=== PATIENT | female | born 1975 | race Caucasian/White ===

== ENCOUNTER 2019-03-27 20:35 | Emergency (ER) | payer SELFPAY ==
[~2019-03-27] VITALS: Ht 175.3 cm; Wt 102.1 kg
--- NOTE | 2019-03-27 20:59 | ED Upper Extremity ---
General Chief Complaint: Upper Extremity Stated Complaint: CHEST PAIN DUE TO INJ History of Present Illness Date Seen by Provider: March 27, 2019 Time Seen by Provider: 20:54 Initial Comments 43-year-old female who states that she is having right shoulder and anterior chest pain due to her 3-year-old son becoming scared during a storm" climbing up my chest" 3 days ago. No shortness of breath. The pain has progressively increased. Her pain worsens with palpation and movement. No history of coronary disease. She has been treated for hypertension. No fever or chills Allergies and Home Medications Patient Home Medication List Home Medication List Reviewed: Yes Review of Systems Constitutional: no symptoms reported, see HPI EENTM: no symptoms reported Respiratory: no symptoms reported; No short of breath, No stridor, No wheezing Cardiovascular: chest pain (chest wall on right side.) Gastrointestinal: no symptoms reported Genitourinary: no symptoms reported Musculoskeletal: see HPI Skin: no symptoms reported Psychiatric/Neurological: No Symptoms Reported Past Mccynrn-Floweq-Iolmgl Hx Past Med/Social Hx: Reviewed Nursing Past Med/Soc Hx Patient Social History Alcohol Use: Denies Use Recreational Drug Use: No Smoking Status: Current Everyday Smoker Type Used: Cigarettes 2nd Hand Smoke Exposure: No Recent Foreign Travel: No Contact w/Someone Who Travel: No Recent Hopitalizations: No Physical Abuse: No Sexual Abuse: No Mistreated: No Fear: No Seasonal Allergies Seasonal Allergies: No Past Medical History Appendectomy, Bowel Surgery, Section Respiratory: No Cardiac: No Neurological: No Genitourinary: No Gastrointestinal: No Musculoskeletal: No Endocrine: No HEENT: No Cancer: No Psychosocial: No Integumentary: No Blood Disorders: No Physical Exam Vital Signs Vital Signs - First Documented 03/27/19 20:49 Temp 96.7 Pulse 83 Resp 24 B/P (MAP) 206/113 (144) Pulse Ox 98 O2 Delivery Room Air Capillary Refill : Height, Weight, BMI Height: '" Weight: lbs. oz. kg; BMI Method: General Appearance: WD/WN, no apparent distress HEENT: PERRL/EOMI, normal ENT inspection, TMs normal, pharynx normal Neck: non-tender, full range of motion, supple, normal inspection Cardiovascular: normal peripheral pulses, regular rate, rhythm, no edema, no gallop, no JVD, no murmur Respiratory: lungs clear, normal breath sounds, no respiratory distress, no accessory muscle use, other (chest wall tender over clavicular area on right, reproduces pain.) Gastrointestinal: normal bowel sounds, non tender, soft, no organomegaly, no pulsatile mass Back: normal inspection, no CVA tenderness, no vertebral tenderness Shoulder: normal inspection, pain Elbow/Forearm: normal inspection, non-tender, no evidence of injury, normal ROM Wrist: Yes normal inspection, Yes non-tender, Yes no evidence of injury, Yes normal ROM Hand: normal inspection, non-tender, no evidence of injury, normal ROM Reflexes: 2+ bicep (R), 2+ bicep (L) Neurologic/Tendon: normal sensation, normal motor functions, normal tendon functions Neurologic/Psychiatric: no motor/sensory deficits, alert, normal mood/affect, oriented x 3 Skin: normal color, warm/dry Lymphatic: no adenopathy Progress/Results/Core Measures Results/Orders Lab Results Laboratory Tests Test 03/27/19 21:20 Range/Units White Blood Count 10.4 4.3-11.0 10^3/uL Red Blood Count 4.13 L 4.35-5.85 10^6/uL Hemoglobin 12.7 11.5-16.0 G/DL Hematocrit 38 35-52 % Mean Corpuscular Volume 91 80-99 FL Mean Corpuscular Hemoglobin 31 25-34 PG Mean Corpuscular Hemoglobin Concent 34 32-36 G/DL Red Cell Distribution Width 13.1 10.0-14.5 % Platelet Count 307 130-400 10^3/uL Mean Platelet Volume 10.3 7.4-10.4 FL Neutrophils (%) (Auto) 61 42-75 % Lymphocytes (%) (Auto) 30 12-44 % Monocytes (%) (Auto) 6 0-12 % Eosinophils (%) (Auto) 2 0-10 % Basophils (%) (Auto) 1 0-10 % Neutrophils # (Auto) 6.4 1.8-7.8 X 10^3 Lymphocytes # (Auto) 3.2 1.0-4.0 X 10^3 Monocytes # (Auto) 0.6 0.0-1.0 X 10^3 Eosinophils # (Auto) 0.2 0.0-0.3 10^3/uL Basophils # (Auto) 0.1 0.0-0.1 10^3/uL Sodium Level 139 135-145 MMOL/L Potassium Level 3.7 3.6-5.0 MMOL/L Chloride Level 103 98-107 MMOL/L Carbon Dioxide Level 25 21-32 MMOL/L Anion Gap 11 5-14 MMOL/L Blood Urea Nitrogen 8 7-18 MG/DL Creatinine 0.67 0.60-1.30 MG/DL Estimat Glomerular Filtration Rate > 60 BUN/Creatinine Ratio 12 Glucose Level 144 H 70-105 MG/DL Calcium Level 8.5 8.5-10.1 MG/DL Corrected Calcium 8.8 8.5-10.1 MG/DL Total Bilirubin 0.2 0.1-1.0 MG/DL Aspartate Amino Transf (AST/SGOT) 14 5-34 U/L Alanine Aminotransferase (ALT/SGPT) 15 0-55 U/L Alkaline Phosphatase 53 40-136 U/L Troponin T < 6 <=10 NG/L Total Protein 7.2 6.4-8.2 GM/DL Albumin 3.6 3.2-4.5 GM/DL My Orders Orders - KYLE MEDINA MD Chest Pa/Lat (2 View) (03/27/19 20:56) Shoulder 3 View Right (03/27/19 20:56) Ekg Tracing (03/27/19 20:56) Cbc With Automated Diff (03/27/19 21:06) Comprehensive Metabolic Panel (03/27/19 21:06) Troponin T (03/27/19 21:06) Vital Signs/I&O 03/27/19 20:49 Temp 96.7 Pulse 83 Resp 24 B/P (MAP) 206/113 (144) Pulse Ox 98 O2 Delivery Room Air Progress Progress Note : Time: 21:09 Progress Note Although her symptoms are more mechanical in nature, findings on the EKG indicate a need to obtain cardiac enzymes as well as chemistry testing. X-rays of shoulder and chest are ordered. 2217 I explained the EKG changes appear to be chronic but need to be followed up by her primary care. We discussed costochondritis and treatment. Initial ECG Impression Date: March 27, 2019 Initial ECG Impression Time: 21:06 Initial ECG Rhythm: Normal Sinus Initial ECG Intervals: QT (prolonged 454) Initial ECG Comparisson: No Previous ECG Available Comment prolonged QT of unknown significance. Diagnostic Imaging Diagonstic Imaging: Xray (chest and right shoulder) Comments No acute changes per radiology. Departure Impression Primary Impression: Costochondral chest pain Additional Impression: Abnormal finding on EKG Disposition: HOME, SELF-CARE Condition: Stable Departure-Patient Inst. Referrals: KYLE LIZAMA MD (PCP) Primary Care Physician 2-3 days, sooner as needed Patient Instructions: Chest Pain (DC), Chest Pain That Is Not Caused by the Heart (DC) Scripts Naproxen (Naprosyn) 500 Mg Tablet 500 MG PO BID, #30 TAB 0 Refills Prov: KYLE MEDINA MD 03/27/19 KYLE MEDINA MD March 27, 2019 20:59
--- NOTE | 2019-03-27 21:24 | Diagnostic Imaging Report ---
INDICATION: Chest pain and injury. TIME OF EXAM: 8:51 p.m. EXAMINATION: Two views of the chest were obtained. COMPARISON: No prior studies are available for comparison. FINDINGS: The heart size is normal. The pulmonary vascularity is unremarkable. The lungs are clear. No infiltrate, effusion or pneumothorax is detected. IMPRESSION: No acute cardiopulmonary process is detected. Dictated by: Dictated on workstation # [id number]
--- NOTE | 2019-03-27 21:26 | Diagnostic Imaging Report ---
INDICATION: Right shoulder injury and pain. TIME OF EXAM: 8:53 p.m. EXAMINATION: Three views of the right shoulder were obtained. FINDINGS: Normal glenohumeral and acromioclavicular alignment. Acromiohumeral space is normal. No fracture or dislocation is seen. IMPRESSION: No acute bony abnormality is detected. Dictated by: Dictated on workstation # [id number]
[2019-03-27 21:33] LABS: HEMATOCRIT 38 % (35-52); HEMOGLOBIN 12.7 G/DL (11.5-16.0); MEAN CORPUSCULAR HEMOGLOBIN 31 PG (25-34); MEAN CORPUSCULAR VOLUME 91 FL (80-99); WHITE BLOOD COUNT 10.4 10^3/uL (4.3-11.0)
[2019-03-27 21:34] LABS: BASOPHILS # (AUTO) 0.1 10^3/uL (0.0-0.1); BASOPHILS % (AUTO) 1 % (0-10); EOSINOPHILS # (AUTO) 0.2 10^3/uL (0.0-0.3); EOSINOPHILS % (AUTO) 2 % (0-10); LYMPHOCYTES # (AUTO) 3.2 X 10^3 (1.0-4.0); LYMPHOCYTES % (AUTO) 30 % (12-44); MEAN CORPUSCULAR HGB CONC 34 G/DL (32-36); MEAN PLATELET VOLUME 10.3 FL (7.4-10.4); MONOCYTES # (AUTO) 0.6 X 10^3 (0.0-1.0); MONOCYTES % (AUTO) 6 % (0-12); NEUTROPHILS # (AUTO) 6.4 X 10^3 (1.8-7.8); NEUTROPHILS % (AUTO) 61 % (42-75); PLATELET COUNT 307 10^3/uL (130-400); RED CELL DISTRIBUTION WIDTH 13.1 % (10.0-14.5)
[2019-03-27 21:58] LABS: CHLORIDE 103 MMOL/L (98-107); POTASSIUM 3.7 MMOL/L (3.6-5.0); SODIUM 139 MMOL/L (135-145)
[2019-03-27 21:59] LABS: ALANINE AMINOTRANSFERASE 15 U/L (0-55); ALKALINE PHOSPHATASE 53 U/L (40-136); BILIRUBIN,TOTAL 0.2 MG/DL (0.1-1.0); BUN/CREATININE RATIO 12; CALCIUM 8.5 MG/DL (8.5-10.1); CARBON DIOXIDE 25 MMOL/L (21-32); CREATININE SERUM 0.67 MG/DL (0.60-1.30); GFR ESTIMATED > 60; GLUCOSE 144 MG/DL (70-105); TOTAL PROTEIN 7.2 GM/DL (6.4-8.2)
[2019-03-27 22:00] LABS: ALBUMIN 3.6 GM/DL (3.2-4.5)
[2019-03-27] MEDS ORDERED: NAPR-1071 PO (22:20)
[2019-03-27] MEDS ORDERED: NAPROXEN 250 MG (NAPROSYN) TABLET PO ONE (22:30)
[2019-03-27] MEDS ORDERED: IBUPROFEN 600 MG (MOTRIN) TAB PO ONE (22:30)
[2019-03-27 22:33] VITALS: BP 191/85
== END 2019-03-27 22:33 | disposition home or self-care (01) ==
LOC: ER FS 20:37
DX: R07.1 Chest pain on breathing (principal); R94.31 Abnormal electrocardiogram [ECG] [EKG]; F17.210 Nicotine dependence, cigarettes, uncomplicated; Z90.49 Acquired absence of other specified parts of digestive tract; Z98.890 Other specified postprocedural states; X58.XXXA Exposure to other specified factors, initial encounter
CPT/HCPCS: 36415; 71046; 73030; 80053; 84484; 85025; 93005

== ENCOUNTER → 2020-06-25 | Outpatient (CLI) | payer OTHER ==
[~2020-06-25] MED LIST: ASPI-983 PO; DULO60CA6 PO; HYDR25TA4 PO; LISI10TA2 PO; LORA10TA7 PO; METO50TA15 PO; NAPR-1071 PO; TEMA7.5C PO
== END ==
LOC: LABNPT 07:22
PROVIDERS: ATTEND Internal Medicine Cardiovascular Disease
DX: Z01.812 Encounter for preprocedural laboratory examination (principal); R05 Cough; R06.02 Shortness of breath; Z53.9 Procedure and treatment not carried out, unspecified reason

== ENCOUNTER 2020-06-30 09:03 | Day surgery (SDC) | payer OTHER ==
[2020-06-30] VITALS (8 sets, daily range): BP systolic 123–149; BP diastolic 69–92
[~2020-06-30] VITALS: Ht 173 cm; Wt 114.0 kg
[~2020-06-30 09:03] MED LIST changes: -ASPI-983 PO; -DULO60CA6 PO; -HYDR25TA4 PO; -LISI10TA2 PO; -LORA10TA7 PO; -METO50TA15 PO; -TEMA7.5C PO
[2020-06-30] MEDS ORDERED: LIDOCAINE 1% INJ 20 ML 20 ML VIAL ONE (09:05)
[2020-06-30] MEDS ORDERED: NS IV 1000 ML 1,000 ML ONE (09:05)
[2020-06-30] MEDS ORDERED: HEParin (CATH LAB) 2,000 ML IV ONE (09:05)
--- OUTSIDE RECORDS SUMMARY | 2020-06-30 09:11 | XMS REPORT | Continuity of Care Document ---
Author Organization Unknown Address Unknown Phone Unavailable Allergies Active Description Code Type Severity Reaction Onset Reported/Identified Relationship to Patient Clinical Status Yes fluticasone [id number] Drug Aller gy Unknown N/A 03/27/2019 Yes Penicillins [id number] Drug Aller gy Unknown N/A 03/27/2019 Medications There is no data. Problems Date Dx Coded Attending Type Code Diagnosis Diagnosed By 03/27/2019 KYLE MEDINA MD, Ot F17.210 NICOTINE DEPENDENCE, CIGARETTES, UNCOMPL 03/27/2019 KYLE MEDINA MD, Ot R07.1 CHEST PAIN ON BREATHING 03/27/2019 KYLE MEDINA MD, Ot R07.9 CHEST PAIN, UNSPECIFIED 03/27/2019 KYLE MEDINA MD, Ot R94.31 ABNORMAL ELECTROCARDIOGRAM [ECG] [EKG] 03/27/2019 KYLE MEDINA MD, Ot X58.XXX A EXPOSURE TO OTHER SPECIFIED FACTORS, INI 03/27/2019 KYLE MEDINA MD Ot Z90.49 ACQUIRED ABSENCE OF OTHER SPECIFIED PART 03/27/2019 KYLE MEDINA MD Ot Z98.890 OTHER SPECIFIED POSTPROCEDURAL STATES 06/25/2020 BROOKE GARDNER MD, Ot I10 ESSENTIAL (PRIMARY) HYPERTENSION 06/25/2020 BROOKE GARDNER MD, Ot R00. 0 TACHYCARDIA, UNSPECIFIED 06/25/2020 BROOKE GARDNER MD, Ot R07. 9 CHEST PAIN, UNSPECIFIED 06/25/2020 BROKOE GARDNER MD, Ot Z72. 0 TOBACCO USE Procedures There is no data. Results Test Result Range Complete blood count (CBC) with automate d white blood cell (WBC) differential - 03/27/19 21:20 Blood leukocytes automated count (number/volume) 10.4 10*3/uL 4.3-11.0 Blood erythrocytes automated count (number/volume) 4.13 10*6/uL 4.35-5.85 Venous blood hemoglobin measurement (mass/volume) 12.7 g/dL 11.5-16.0 Blood hematocrit (volume fraction) 38 % 35-52 Automated erythrocyte mean corpuscular volume 91 [ foz_us] 80-99 Automated erythrocyte mean corpuscular h emoglobin (mass per erythrocyte) 31 pg 25-34 Automated erythrocyte mean corpuscular h emoglobin concentration measurement (mass/volume) 34 g/dL 32-36 Automated erythrocyte distribution width ratio 13. 1 % 10.0- 14.5 Automated blood platelet count (count/volume) 307 10*3/uL 130-400 Automated blood platelet mean volume measurement 10.3 [foz_us] 7.4-10.4 Automated blood neutrophils/100 leukocytes 61 % 42-75 Automated blood lymphocytes/100 leukocytes 30 % 12-44 Blood monocytes/100 leukocytes 6 % 0-12 Automated blood eosinophils/100 leukocytes 2 % 0-10 Automated blood basophils/100 leukocytes 1 % 0-10 Blood neutrophils automated count (number/volume) 6.4 10*3 1.8-7.8 Blood lymphocytes automated count (number/volume) 3.2 10*3 1.0-4.0 Blood monocytes automated count (number/volume) 0. 6 10*3 0.0-1.0 Automated eosinophil count 0.2 10*3/uL 0 .0-0.3 Automated blood basophil count (count/volume) 0.1 10*3/uL 0.0-0.1 Comprehensive metabolic panel - 03/27/19 21:20 Serum or plasma sodium measurement (moles/volume) 139 mmol/L 135-145 Serum or plasma potassium measurement (moles/volume) 3.7 mmol/L 3.6-5.0 Serum or plasma chloride measurement (moles/volume) 103 mmol/L 98-107 Carbon dioxide 25 mmol/L 21-32 Serum or plasma anion gap determination (moles/volume) 11 mmol/L 5-14 Serum or plasma urea nitrogen measurement (mass/volume ) 8 mg/dL 7-18 Serum or plasma creatinine measurement (mass/volume) 0.67 mg/dL 0.60-1.30 Serum or plasma urea nitrogen/creatinine mass ratio 12 NRG Serum or plasma creatinine measurement w ith calculation of estimated glomerular filtration rate > NRG Serum or plasma glucose measurement (mass/volume) 144 mg/dL 70-105 Serum or plasma calcium measurement (mass/volume) 8.5 mg/dL 8.5-10.1 Serum or plasma total bilirubin measurement (mass/volu me) 0.2 mg/dL 0.1-1.0 Serum or plasma alkaline phosphatase lucas surement (enzymatic activity/volume) 53 U/L 40-136 Serum or plasma aspartate aminotransfera se measurement (enzymatic activity/volume) 14 U/L 5-34 Serum or plasma alanine aminotransferase measurement (enzymatic activity/volume) 15 U/L 0-55 Serum or plasma protein measurement (mass/volume) 7.2 g/dL 6.4-8.2 Serum or plasma albumin measurement (mass/volume) 3.6 g/dL 3.2-4.5 CALCIUM CORRECTED 8.8 mg/dL 8.5-10.1 TROPONIN T - 03/27/19 21:20 TROPONIN T < 6 <=10 CMP - 07/16/19 08:02 GLUCOSE 98 mg/dL 65-99 UREA NITROGEN (BUN) 8 mg/dL 7-25 CREATININE 0.74 mg/dL 0.50-1.10 eGFR NON-AFR. FAROESE 101 mL/min/1.73m2 > OR = 60 eGFR 117 mL/min/1.73m2 > OR = 60 BUN/CREATININE RATIO NOT APPLICABLE (calc) 6-22 SODIUM 136 mmol/L 135-146 POTASSIUM 4.1 mmol/L 3.5-5.3 CHLORIDE 104 mmol/L 98-110 CARBON DIOXIDE 24 mmol/L 20-32 CALCIUM 8.6 mg/dL 8.6-10.2 PROTEIN, TOTAL 6.7 g/dL 6.1-8.1 ALBUMIN 3.9 g/dL 3.6-5.1 GLOBULIN 2.8 g/dL (calc) 1.9-3.7 ALBUMIN/GLOBULIN RATIO 1.4 (calc) 1.0-2. 5 BILIRUBIN, TOTAL 0.3 mg/dL 0.2-1.2 ALKALINE PHOSPHATASE 46 U/L 33-115 AST 15 U/L 10-30 ALT 14 U/L 6-29 CBC w/MANUAL DIFF - 07/16/19 08:02 WHITE BLOOD CELL COUNT 7.8 Thousand/uL 3 .8-10.8 RED BLOOD CELL COUNT 4.34 Million/uL 3.8 0-5.10 HEMOGLOBIN 12.9 g/dL 11.7-15.5 HEMATOCRIT 39.8 % 35.0-45.0 MCV 91.7 fL 80.0-100.0 MCH 29.7 pg 27.0-33.0 MCHC 32.4 g/dL 32.0-36.0 RDW 13.8 % 11.0-15.0 PLATELET COUNT 285 Thousand/uL 140-400 MPV 10.4 fL 7.5-12.5 ABSOLUTE NEUTROPHILS 4368 cells/uL 1500- 7800 ABSOLUTE MONOCYTES 741 cells/uL 200-950 ABSOLUTE EOSINOPHILS 273 cells/uL 15-500 ABSOLUTE BASOPHILS 133 cells/uL 0-200 NEUTROPHILS 56.0 % NRG LYMPHOCYTES 29.3 % NRG MONOCYTES 9.5 % NRG EOSINOPHILS 3.5 % NRG BASOPHILS 1.7 % NRG ABSOLUTE LYMPHOCYTES 2285 cells/uL 850-3 900 PLATELET ESTIMATION ADEQUATE ADEQUATE COMMENT(S) NRG A1C - 07/16/19 08:02 HEMOGLOBIN A1c 5.3 % of total Hgb <5.7 BNP - 07/16/19 08:02 B TYPE NATRIURETIC PEPTIDE (BNP) 22 pg/mL <100 LIPID PANEL - 06/09/20 08:09 CHOLESTEROL, TOTAL 142 mg/dL <200 HDL CHOLESTEROL 29 mg/dL > OR = 50 TRIGLYCERIDES 229 mg/dL <150 LDL-CHOLESTEROL 81 mg/dL (calc) NRG CHOL/HDLC RATIO 4.9 (calc) <5.0 NON HDL CHOLESTEROL 113 mg/dL (calc) <13 0 CMP - 06/09/20 08:09 GLUCOSE 98 mg/dL 65-99 UREA NITROGEN (BUN) 9 mg/dL 7-25 CREATININE 0.73 mg/dL 0.50-1.10 eGFR NON-AFR. FAROESE 102 mL/min/1.73m2 > OR = 60 eGFR 118 mL/min/1.73m2 > OR = 60 BUN/CREATININE RATIO NOT APPLICABLE (calc) 6-22 SODIUM 135 mmol/L 135-146 POTASSIUM 3.8 mmol/L 3.5-5.3 CHLORIDE 99 mmol/L 98-110 CARBON DIOXIDE 26 mmol/L 20-32 CALCIUM 8.2 mg/dL 8.6-10.2 PROTEIN, TOTAL 6.6 g/dL 6.1-8.1 ALBUMIN 3.8 g/dL 3.6-5.1 GLOBULIN 2.8 g/dL (calc) 1.9-3.7 ALBUMIN/GLOBULIN RATIO 1.4 (calc) 1.0-2. 5 BILIRUBIN, TOTAL 0.3 mg/dL 0.2-1.2 ALKALINE PHOSPHATASE 43 U/L 31-125 AST 13 U/L 10-30 ALT 11 U/L 6-29 TSH - 06/09/20 08:09 TSH 2.01 mIU/L NRG A1C - 06/09/20 08:09 HEMOGLOBIN A1c 5.4 % of total Hgb <5.7 Encounters ACCT No. Visit Date/Time Discharge Status Pt. Type Provider Facility Loc./Unit Complaint [id number] 06/25/2020 11:00:00 06/25/2020 23:59: 59 CLS Outpatient SAMANTHA BURAK [facility] [id number] 06/09/2020 08:00:00 Document Registration [id number] 07/16/2019 08:00:00 Document Registration [id number] 06/25/2020 07:22:00 020 23:59:59 CLS Outpatient BROOKE GARDNER MD [facility] LABNPT [id number] 06/23/2020 07:39:00 23:59:59 CLS Outpatient BROOKE GARDNER MD [facility] CARD DYSPNEA ON EXERTION,PATTIE ST PAIN,HYPERTENSION [id number] 03/27/2019 20:37:00 22:33:00 DIS Emergency CAROL LAY, KYLE hodges [facility] ER FS CHEST PAIN DUE TO INJ [id number] 06/30/2020 09:03:[address] Outpatient BROOKE GARDNER MD [facility] CATH ABN STRESS
[2020-06-30] MEDS ORDERED: NS IV 1000 ML 1,000 ML IV SCH ×3 (09:15→12:59)
[2020-06-30] MEDS ORDERED: methylPREDNISolone 125 MG (Solu-MEDROL) VIAL ONE (10:24)
[2020-06-30] MEDS ORDERED: diphenhydrAMINE 50 MG/ML INJ (BENADRYL) ONE (10:24)
[2020-06-30 10:25] LABS: HEMOGLOBIN 14.3 G/DL (11.5-16.0); MEAN PLATELET VOLUME 9.9 FL (7.4-10.4); RED CELL DISTRIBUTION WIDTH 12.6 % (10.0-14.5); WHITE BLOOD COUNT 8.9 10^3/uL (4.3-11.0)
--- NOTE | 2020-06-30 10:28 | Diagnostic Imaging Report ---
INDICATION: Coronary artery disease. COMPARISON: 03/27/2019. FINDINGS: No focal consolidation. No failure, effusion, or pneumothorax. No free air beneath the diaphragms. IMPRESSION: No acute appearing abnormality. Dictated by: Dictated on workstation # [id number]
[2020-06-30 10:36] LABS: INR 0.9 (0.8-1.4)
[2020-06-30] MEDS ORDERED: TEMA7.5C PO (10:41)
[2020-06-30] MEDS ORDERED: DULO60CA6 PO (10:41)
[2020-06-30] MEDS ORDERED: LISI10TA2 PO (10:41)
[2020-06-30] MEDS ORDERED: LORA10TA7 PO (10:41)
[2020-06-30] MEDS ORDERED: HYDR25TA4 PO (10:41)
[2020-06-30] MEDS ORDERED: METO50TA15 PO (10:41)
[2020-06-30] MEDS ORDERED: ASPI-983 PO (10:41)
--- NOTE | 2020-06-30 10:42 | NUR ---
SPOKE WITH THE PT AND LOOKED THRU HER MED BOTTLES TO COMPLETE THE MED REC 05-10-2020 LISINOPRIL 10MG #90/90DS 06-04-2020 DULOXETINE 60MG #30/30DS 06-04-2020 TEMAZEPAM 7.5MG #28/28DS 06-04-2020 HCTZ 25MG #30/30DS 06-15-2020 METOPROLOL TART 50MG #60/30DS OTC MEDS: ASPIRIN 81 LORATADINE 10MG
[2020-06-30 10:45] LABS: ALANINE AMINOTRANSFERASE 16 U/L (0-55); ALBUMIN 3.8 GM/DL (3.2-4.5); ALKALINE PHOSPHATASE 42 U/L (40-136); BILIRUBIN,TOTAL 0.3 MG/DL (0.1-1.0); BUN/CREATININE RATIO 12; CALCIUM 8.1 MG/DL (8.5-10.1); CARBON DIOXIDE 24 MMOL/L (21-32); CHLORIDE 102 MMOL/L (98-107); CHOLESTEROL 154 MG/DL (< 200); CREATININE SERUM 0.68 MG/DL (0.60-1.30); GFR ESTIMATED > 60; GLUCOSE 105 MG/DL (70-105); HDL CHOLESTEROL 26 MG/DL (40-60); SODIUM 138 MMOL/L (135-145); TOTAL PROTEIN 7.3 GM/DL (6.4-8.2); TRIGLYCERIDES 112 MG/DL (<150); VLDL CHOLESTEROL 22 MG/DL (5-40)
[2020-06-30] MEDS ORDERED: methylPREDNISolone 125 MG (Solu-MEDROL) VIAL IVP ONE (10:45)
--- NOTE | 2020-06-30 12:02 | Cardiac Procedure Note-CS/ASA ---
Pre-Procedure Note Pre-Op Procedure Note H&P Reviewed The H&P was reviewed, patient examined and no changes noted. Date H&P Reviewed: Jun 30, 2020 Time H&P Reviewed: 12:02 Conscious Sedation Pre-Proced Time 12:02 ASA Score 3 For ASA 3 and 4: Consider anesthesia and medical clearance. Also, for patients with a history of failed moderate sedation consider anesthesia. Airway Lungs Heart ASA score ASA 1: a normal healthy patient ASA 2: a patient with a mild systemic disease (mid diabetes, controlled hypertension, obesity x ASA 3: a patient with a severe systemic disease that limits activity (angina, COPD, prior Myocardial infarction) ASA 4: a patient with an incapacitating disease that is a constant threat to life (CHF, renal failure) ASA 5: a moribund patient not expected to survive 24 hrs. (ruptured aneurysm) ASA 6: a declared brain- patient whose organs are being harvested. For emergent operations, add the letter E after the classification Mallampati Classification Grade 3 Sedation Plan Analgesia, Amnesia, Plan communicated to team members, Discussed options with patient/fam, Discussed risks with patient/fam The patient is an appropriate candidate to undergo the planned procedure, sedation, and anesthesia. The patient immediately re-assessed prior to indication. BROOKE GARDNER MD Jun 30, 2020 12:02
[2020-06-30] MEDS ORDERED: MIDAZOLAM 5 MG/5 ML (VERSED) VIAL ONE (12:23)
[2020-06-30] MEDS ORDERED: NITRO DRIP 25000 MCG/D5W 250 ML IV ONE (12:24)
[2020-06-30] MEDS ORDERED: HEParin 1000 UNIT/ML (10ML VIAL) FOR BOLUS ONE (12:24)
[2020-06-30] MEDS ORDERED: VERAPAMIL 5 MG/2 ML (CALAN) VIAL IV ONE (12:24)
[2020-06-30] MEDS ORDERED: fentaNYL INJECTION 100 MCG/2 ML AMP ONE (12:24)
[2020-06-30] MEDS ORDERED: PATIENT MAY USE OWN MEDS, ALL PO SCH (13:00)
--- NOTE | 2020-06-30 13:01 | Discharge Inst-Post CATH ---
Discharge Inst-CATH/EP Problems Reviewed?: Yes Post Cardiac Cath/EP D/C Inst Follow Up/Plan Appointment with Dr. Jones's office in 2-4 weeks <b>CARDIAC CATH/EP PROCEDURE DISCHARGE INSTRUCTIONS</b> ACTIVITY * Go Home directly and rest. * Limit activity of the leg (or wrist if it was used) for 7 days including aerobics, swimming, jogging, bicycling, etc. * Restrict stair-climbing for 7 days if possible, if not, climb up with your non-cath leg, then bring together on the same step. * Avoid lifting, pushing, pulling or excessive movement of the affected extremity for 7 days. * Customary sexual activity may be resumed after 2 days-use caution not to use a position that strains or causes pain to the affected extremity. * No driving for 24 hours. * NO SMOKING. * Avoid straining for bowel movements for 7 days. * Gentle walking on level ground is allowed. * Returning to work will depend on the type of procedure and the results. Your doctor will discuss this with you. CALL YOUR DOCTOR FOR ANY OF THE FOLLOWING: *If bleeding from the puncture site occurs- Apply gentle pressure to site with clean cloth and call your doctor or EMS. * If a knot or lump forms under the skin, increases in size, or causes pain. * If bruising appears to be worsening or moving further down your leg instead of disappearing. * Temperature above 101 F. CARE OF YOUR GROIN INCISION; * Bruising or purple discoloration of the skin near the puncture site is common. * You may shower only, no bathtub bathing for 5 days. Be careful to avoid slipping as your leg may feel stiff. * If a closure device was used on your femoral artery, please see the attached guide regarding care of the device and your leg. * Leave dressing on FOR 24 hours. CARE OF YOUR WRIST INCISION; * Bruising or purple discoloration of the skin near the puncture site is common. * You may shower. * DO NOT submerge wrist. * Leave dressing on FOR 24 hours. BROOKE JONES MD Jun 30, 2020 13:01
--- NOTE | 2020-06-30 13:05 | Cardiac Cath Report ---
Cardiac Cath Report Physician (s)/Community Resource Consultant (s) Physician BROOKE GARDNER MD Pre-Procedure Diagnosis Pre-Procedure Diagnosis: Coronary artery disease Post-Procedure Note Procedure Start Date: Jun 30, 2020 Name of Procedure: Left heart catheterization Left ventriculogram Aortic arch angiogram Findings/Procedure Note PROCEDURE NOTE: 44-year-old lady with history of hypertension, hyperlipidemia, has been having recurrent chest pain, had an abnormal stress test. Scheduled for cardiac catheterization possible PTCA. After explaining the procedure to the patient, all pros and cons were explained, all questions were answered. The patient signed the consent and then she was placed on the cardiac catheterization laboratory. Groin was prepped SL fashion local anesthesia was used. Sheath placed in the right radial artery, tiger catheter was used advanced to the left ventricular cavity, left ventriculogram was done, pullback LV to aorta was done, pressure was measured, intubated the right and left coronary system and selective angiogram was done then it was pulled to the aortic arch and aortic arch angiogram was done. At the end of the procedure the sheath was removed. 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 Mild coronary artery disease otherwise no significant obstructive disease 3. Normal left ventricular size and systolic function EF 60 percent 4. 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
--- NOTE | 2020-06-30 13:52 | NUR ---
THIS RN PHONED DR. GARDNER TO VERIFY BEDREST. INFORMED THAT PATIENT COULD LEAVE AT 1500.
== END 2020-06-30 15:15 ==
LOC: CATH 09:03 → SDC 13:21 → CATH 15:15
PROVIDERS: ATTEND Internal Medicine Cardiovascular Disease
DX: I25.10 Atherosclerotic heart disease of native coronary artery without angina pectoris (principal); I10 Essential (primary) hypertension; R94.39 Abnormal result of other cardiovascular function study; E78.2 Mixed hyperlipidemia; F41.9 Anxiety disorder, unspecified; E66.9 Obesity, unspecified; Z68.38 Body mass index [BMI] 38.0-38.9, adult; F17.210 Nicotine dependence, cigarettes, uncomplicated; Z79.899 Other long term (current) drug therapy; Z79.82 Long term (current) use of aspirin; Z88.0 Allergy status to penicillin; Z91.041 Radiographic dye allergy status; Z91.013 Allergy to seafood; Z88.8 Allergy status to other drugs, medicaments and biological substances; Z88.1 Allergy status to other antibiotic agents; Z80.3 Family history of malignant neoplasm of breast; Z83.3 Family history of diabetes mellitus
CPT/HCPCS: 71045; 80053; 80061; 84703; 85027; 85610; 85730; 87081; 93458; C1894; 36415

== ENCOUNTER 2020-10-07 07:22 | Outpatient (RCR) | payer OTHER ==
[~2020-10-07] VITALS: Ht 175.3 cm; Wt 118.2 kg
[~2020-10-07 07:22] MED LIST changes: +ASPI-1238 PO; +DULO60CA6 PO; +HYDR25TA4 PO; +LISI10TA2 PO; +LORA10TA7 PO; +METO50TA15 PO; +TEMA7.5C PO
== END 2020-10-07 11:55 | disposition home or self-care (01) ==
LOC: PREOP 07:22
PROVIDERS: ATTEND Obstetrics & Gynecology
DX: Z01.818 Encounter for other preprocedural examination (principal)

== ENCOUNTER → 2020-10-08 | Outpatient (CLI) | payer OTHER | LOC: LAB FS 10:19 | PROVIDERS: ATTEND Obstetrics & Gynecology | DX: Z01.812 Encounter for preprocedural laboratory examination (principal); N93.9 Abnormal uterine and vaginal bleeding, unspecified; Z68.38 Body mass index [BMI] 38.0-38.9, adult; Z20.828 Contact with and (suspected) exposure to other viral communicable diseases | CPT/HCPCS: 87635 ==

== ENCOUNTER 2020-10-11 08:57 | Day surgery (SDC) | payer OTHER ==
[2020-10-11] VITALS (10 sets, daily range): BP systolic 114–140; BP diastolic 73–83
[~2020-10-11] VITALS: Ht 175 cm; Wt 118.0 kg
[2020-10-11 09:35] LABS: BASOPHILS % (AUTO) 0 % (0-10); EOSINOPHILS # (AUTO) 0.1 10^3/uL (0.0-0.3); EOSINOPHILS % (AUTO) 1 % (0-10); HEMATOCRIT 42 % (35-52); LYMPHOCYTES # (AUTO) 2.9 10^3/uL (1.0-4.0); LYMPHOCYTES % (AUTO) 26 % (12-44); MEAN CORPUSCULAR HEMOGLOBIN 31 pg (25-34); MEAN CORPUSCULAR HGB CONC 33 g/dL (32-36); MEAN CORPUSCULAR VOLUME 95 fL (80-99); MEAN PLATELET VOLUME 10.5 fL (9.0-12.2); MONOCYTES # (AUTO) 0.8 10^3/uL (0.0-1.0); MONOCYTES % (AUTO) 7 % (0-12); NEUTROPHILS # (AUTO) 7.3 10^3/uL (1.8-7.8); NEUTROPHILS % (AUTO) 65 % (42-75); PLATELET COUNT 302 10^3/uL (130-400); WHITE BLOOD COUNT 11.2 10^3/uL (4.3-11.0)
[2020-10-11] MEDS: LACTATED RINGERS 1,000 ML IV PRN ×2 (09:55→11:42)
[2020-10-11] MEDS ORDERED: D5 LR IV SOLUTION 1,000 ML IV SCH (10:20)
--- NOTE | 2020-10-11 10:20 | Progress Note-Pre Operative ---
Pre-Operative Progress Note H&P Reviewed The H&P was reviewed, patient examined and no changes noted. Date Seen by Provider: Oct 11, 2020 Time Seen by Provider: 10:19 Date H&P Reviewed: Oct 11, 2020 Time H&P Reviewed: 10:15 Pre-Operative Diagnosis: AUB, BMI 38 ARTI COSTA DO Oct 11, 2020 10:20
--- NOTE | 2020-10-11 10:22 | Discharge Inst-Women's Service ---
Discharge Inst-Women's Serv Depart Medication/Instructions New, Converted or Re-Newed RX: RX on Chart Problems Reviewed?: Yes Consults/Follow Up Additional Follow Up: Yes Orders/Referrals Dr. Costa in 2 weeks Activity Activity: Activity as Tolerated Driving Instructions: No Driving for 1 Week NO SMOKING: NO SMOKING Nothing Inside Vagina: No Douching, No Mcleod, No Tampons Diet Discharge Diet: No Restrictions Symptoms to Report to : Bleeding Excessive, Pain Increased, Fever Over 101 Degrees F, Vaginal Bleeding Increase, Questions/Concerns For Any Problems or Questions: Contact Your Physician ARTI COSTA DO Oct 11, 2020 10:22
[2020-10-11] MEDS ORDERED: KETOROLAC 30 MG/ML VIAL IVP ONE (10:30)
[2020-10-11] MEDS ORDERED: ONDANSETRON 4 MG/2 ML (SDV) Z0FRAN IVP PRN ×2 (10:30→12:30)
[2020-10-11] MEDS ORDERED: HYDROcodone/APAP 5 MG/325 MG (LORTAB) TAB PO PRN (10:30)
[2020-10-11] MEDS ORDERED: MIDAZOLAM 2 MG/2 ML (VERSED) VIAL ONE (10:51)
[2020-10-11] MEDS ORDERED: fentaNYL INJECTION 100 MCG/2 ML AMP ONE (10:51)
[2020-10-11] MEDS ORDERED: LIDOCAINE PF 2% 5 ML (XYLOCAINE) VIAL ONE (10:56)
[2020-10-11] MEDS ORDERED: ONDANSETRON 4 MG/2 ML (SDV) Z0FRAN ONE (10:56)
[2020-10-11] MEDS ORDERED: SEVOFLURANE (ULTANE) 15 ML INHAL SOLN ONE ×3 (10:56→12:23)
[2020-10-11] MEDS ORDERED: BUPIVACAINE 0.25% 30 ML (SENSORCAINE) VIAL ONE (12:02)
[2020-10-11] MEDS ORDERED: HYDROmorphone 2 MG/ML VIAL (DILAUDID) IV ONE (12:30)
[2020-10-11] MEDS ORDERED: KETOROLAC 30 MG/ML VIAL ONE (13:53)
--- NOTE | 2020-10-11 14:10 | Anesthesia-General Post-Op ---
General Patient Condition Mental Status/LOC: Same as Preop Cardiovascular: Satisfactory Nausea/Vomiting: Absent Respiratory: Satisfactory Pain: Controlled Complications: Absent Post Op Complications Complications None Follow Up Care/Instructions Patient Instructions None needed. Anesthesia/Patient Condition Patient Condition Patient is doing well, no complaints, stable vital signs, no apparent adverse anesthesia problems. No complications reported per nursing. D/C home per [facility] Criteria: Yes DICKSON RUBIO CRNA Oct 11, 2020 14:10
--- NOTE | 2020-10-11 20:48 | OPERATIVE REPORT ---
DATE OF SERVICE: PREOPERATIVE DIAGNOSES: 1. A 45-year-old female with abnormal uterine bleeding. 2. Thickened endometrium on ultrasound. 3. Obesity. POSTOPERATIVE DIAGNOSES: 1. A 45-year-old female with abnormal uterine bleeding. 2. Thickened endometrium on ultrasound. 3. Obesity. PROCEDURE PERFORMED: D and C. SURGEON: Arti Costa DO ANESTHESIA: LMA general. ESTIMATED BLOOD LOSS: Minimal. URINE OUTPUT: 100 mL clear drained at the end of procedure. FLUIDS: 800 mL lactated Ringer's solution. FINDINGS: Grossly normal-appearing external female genitalia. Small to moderate amount of endometrial tissue on curetting. SPECIMEN SENT: Endometrial curettings. INDICATIONS FOR PROCEDURE: This 45-year-old female patient who is consulted to my office for recurrent issues with heavy bleeding. Endometrial sampling. Pathology had not been identified on her preconsult workup. I discussed with the patient and obtaining an endometrial sample. We discussed the method of doing this including an endometrial biopsy in the office versus D and C. We discussed both the potential curative and diagnostic measures that a D and C in the hospital may achieved after all of her questions were answered pertaining this including the risks involved with this procedure, consent was obtained, the patient was taken to the operating room. OPERATIVE REPORT IN DETAIL: Once in the operating room, anesthesia was found to be adequate, placed in dorsal lithotomy position, prepped and draped in normal sterile fashion. Timeout was performed. A weighted speculum was inserted to the patient's vagina. Right angle retractor used to visualize the cervix, which was grasped at 12 o'clock position using a long Allis clamp. Paracervical block was performed at 3 and 9 o'clock positions on the cervix. Care was taken to aspirate for injecting 5 mL of 0.25% Marcaine are injected to each site after which the cervix, which was then sounded and found to have a cavity depth of 8 cm. I then gently dilated the cervix using Hanks dilators to allow endometrial curette to be passed. Once this was done, I performed a gentle curettage of the endometrium collecting the tissue and sending as endometrial curettings. I then removed all the other instruments from the patient's vagina. The patient tolerated the procedure well and sent to recovery in stable condition. Lap and sponge counts were correct at the end of the procedure. Instrument counts correct as well. Job ID: [id number] DocumentID: [id number] Dictated Date: 10/11/2020 12:14:06 Insurance Sales Supervisor Date: 10/11/2020 20:47:59 Dictated By: ARTI COSTA DO
== END 2020-10-11 14:10 | disposition home or self-care (01) ==
LOC: SDC 08:57
PROVIDERS: ATTEND Obstetrics & Gynecology
DX: N93.9 Abnormal uterine and vaginal bleeding, unspecified (principal); R93.89 Abnormal findings on diagnostic imaging of other specified body structures; E78.2 Mixed hyperlipidemia; F41.9 Anxiety disorder, unspecified; I25.10 Atherosclerotic heart disease of native coronary artery without angina pectoris; F17.210 Nicotine dependence, cigarettes, uncomplicated; E66.9 Obesity, unspecified; Z68.38 Body mass index [BMI] 38.0-38.9, adult; Z79.82 Long term (current) use of aspirin; Z79.899 Other long term (current) drug therapy; Z88.0 Allergy status to penicillin; Z91.041 Radiographic dye allergy status; Z91.013 Allergy to seafood; Z88.8 Allergy status to other drugs, medicaments and biological substances; Z80.9 Family history of malignant neoplasm, unspecified; Z83.3 Family history of diabetes mellitus
CPT/HCPCS: 36415; 84703; 85025; 86850; 86900; 86901; 87081; 88305; 88342

== ENCOUNTER 2020-11-16 11:31 | Outpatient (RCR) | payer OTHER ==
[~2020-11-16] VITALS: Ht 172 cm; Wt 118.1 kg
== END 2020-11-16 11:32 | disposition home or self-care (01) ==
LOC: PREOP 11:31
PROVIDERS: ATTEND Obstetrics & Gynecology
DX: Z01.818 Encounter for other preprocedural examination (principal)

== ENCOUNTER → 2020-11-17 | Outpatient (CLI) | payer OTHER ==
[~2020-11-17] MED LIST changes: +CALC-308 PO; +DCS100C PO; +HYDR-34 PO; +IBUP-844 PO; +PNV1TABL9 PO; +SIME80TA16 PO
== END ==
LOC: LAB FS 10:00
PROVIDERS: ATTEND Obstetrics & Gynecology
DX: Z01.812 Encounter for preprocedural laboratory examination (principal); N93.8 Other specified abnormal uterine and vaginal bleeding; Z20.828 Contact with and (suspected) exposure to other viral communicable diseases; E66.01 Morbid (severe) obesity due to excess calories; Z68.38 Body mass index [BMI] 38.0-38.9, adult
CPT/HCPCS: 87635

== ENCOUNTER 2020-11-22 08:16 | Day surgery (SDC) | payer OTHER ==
[2020-11-22] VITALS (11 sets, daily range): BP systolic 112–156; BP diastolic 58–88
[~2020-11-22] VITALS: Ht 172 cm; Wt 118.1 kg
[~2020-11-22 08:16] MED LIST changes: -CALC-308 PO; -DCS100C PO; -HYDR-34 PO; -IBUP-844 PO; -PNV1TABL9 PO; -SIME80TA16 PO
[2020-11-22] MEDS ORDERED: ceFAZolin 2 GM IV Premixed 50 ML IV ONE (08:30)
[2020-11-22] MEDS ORDERED: metroNIDAZOLE 500MG/100ML IVPB 100 ML IV ONE (08:30)
[2020-11-22] MEDS ORDERED: CATHETER FLUSH 10 ML SYR IV PRN (08:45)
[2020-11-22 09:03] LABS: BASOPHILS # (AUTO) 0.1 10^3/uL (0.0-0.1); BASOPHILS % (AUTO) 1 % (0-10); EOSINOPHILS # (AUTO) 0.2 10^3/uL (0.0-0.3); EOSINOPHILS % (AUTO) 2 % (0-10); HEMATOCRIT 40 % (35-52); HEMOGLOBIN 13.3 g/dL (11.5-16.0); LYMPHOCYTES # (AUTO) 2.8 10^3/uL (1.0-4.0); LYMPHOCYTES % (AUTO) 30 % (12-44); MEAN CORPUSCULAR HEMOGLOBIN 32 pg (25-34); MEAN CORPUSCULAR HGB CONC 33 g/dL (32-36); MEAN CORPUSCULAR VOLUME 95 fL (80-99); MEAN PLATELET VOLUME 10.3 fL (9.0-12.2); MONOCYTES # (AUTO) 0.6 10^3/uL (0.0-1.0); MONOCYTES % (AUTO) 7 % (0-12); NEUTROPHILS # (AUTO) 5.7 10^3/uL (1.8-7.8); NEUTROPHILS % (AUTO) 61 % (42-75); PLATELET COUNT 256 10^3/uL (130-400); WHITE BLOOD COUNT 9.3 10^3/uL (4.3-11.0)
[2020-11-22] MEDS: LACTATED RINGERS 1,000 ML IV SCH ×2 (09:32→09:42)
[2020-11-22] MEDS ORDERED: CALC-308 PO (09:33)
[2020-11-22] MEDS ORDERED: PNV1TABL9 PO (09:33)
[2020-11-22] MEDS ORDERED: ONDANSETRON 4 MG/2 ML (SDV) Z0FRAN ONE (09:35)
[2020-11-22] MEDS ORDERED: SEVOFLURANE (ULTANE) 15 ML INHAL SOLN ONE ×6 (09:35→12:49)
[2020-11-22] MEDS ORDERED: ROCURONIUM 10 MG/ML 5 ML SYRINGE IV ONE ×2 (09:35→11:22)
[2020-11-22] MEDS ORDERED: proPOfol 200 MG/20 ML (DIPRIVAN) VIAL IV ONE (09:35)
[2020-11-22] MEDS ORDERED: LIDOCAINE PF 2% 5 ML (XYLOCAINE) VIAL ONE (09:35)
[2020-11-22] MEDS ORDERED: fentaNYL INJECTION 100 MCG/2 ML AMP ONE (09:36)
[2020-11-22] MEDS ORDERED: MIDAZOLAM 2 MG/2 ML (VERSED) VIAL ONE (09:36)
[2020-11-22] MEDS ORDERED: BUPIVACAINE 0.25% 30 ML (SENSORCAINE) VIAL ONE (09:39)
--- NOTE | 2020-11-22 09:39 | Progress Note-Pre Operative ---
Pre-Operative Progress Note H&P Reviewed The H&P was reviewed, patient examined and no changes noted. Date Seen by Provider: Nov 22, 2020 Time Seen by Provider: :45 Date H&P Reviewed: Nov 22, 2020 Time H&P Reviewed: :45 Pre-Operative Diagnosis: DUB, BMI 40 ARTI COSTA DO Nov 22, 2020 09:39
--- NOTE | 2020-11-22 09:41 | Discharge Inst-Women's Service ---
Discharge Inst-Women's Serv Depart Medication/Instructions New, Converted or Re-Newed RX: RX on Chart Problems Reviewed?: Yes Consults/Follow Up Additional Follow Up: Yes Orders/Referrals Dr. Liz in 7-10 days and in 8 weeks Activity Activity: Activity as Tolerated Driving Instructions: No Driving for 1 Week NO SMOKING: NO SMOKING Nothing Inside Vagina: No Douching, No [place], No Tampons Diet Discharge Diet: No Restrictions Symptoms to Report to : Bleeding Excessive, Pain Increased, Fever Over 101 Degrees F, Vaginal Bleeding Increase, Questions/Concerns For Any Problems or Questions: Contact Your Physician Skin/Wound Care Infection Signs and Symptoms: Increased Redness, Foul Odor of Wound, Increased Drainage, Skin Itchy or Has a Rash, Increased Swelling, Temperature Above 101 F Operative Area Clean and Dry: Keep Incision Clean/Dry Stitches/Gregory/Dermabond: Dermabond, Care of Stitches Bathing Instructions: ARTI Miner DO Nov 22, 2020 09:41
[2020-11-22] MEDS ORDERED: DCS100C PO (09:42)
[2020-11-22] MEDS ORDERED: SIME80TA16 PO (09:42)
[2020-11-22] MEDS ORDERED: HYDR-34 PO (09:42)
[2020-11-22] MEDS ORDERED: IBUP-844 PO (09:42)
[2020-11-22] MEDS ORDERED: ZOLPIDEM 5 MG (AMBIEN) TAB PO PRN (09:45)
[2020-11-22] MEDS ORDERED: SIMETHICONE 80 MG (MYLICON) CHEW PO PRN (09:45)
[2020-11-22] MEDS ORDERED: CHLORASEPTIC LOZENGE MM PRN (09:45)
[2020-11-22] MEDS ORDERED: DOCUSATE SODIUM 100 MG (COLACE) CAP PO PRN (09:45)
[2020-11-22] MEDS ORDERED: ANTACID SUSP 30 ML UDC (MYLANTA) PO PRN (09:45)
[2020-11-22] MEDS ORDERED: KETOROLAC 30 MG/ML VIAL IV PRN (09:45)
[2020-11-22] MEDS ORDERED: ONDANSETRON 4 MG/2 ML (SDV) Z0FRAN IV PRN (09:45)
[2020-11-22] MEDS ORDERED: LACTATED RINGERS 1,000 ML IV SCH (09:45)
[2020-11-22] MEDS ORDERED: HYDROcodone/APAP 7.5 MG/325 MG (LORTAB, LORCET PLUS) TABLET PO PRN (09:45)
[2020-11-22] MEDS ORDERED: HYDROmorphone 2 MG/ML VIAL (DILAUDID) ONE (10:58)
[2020-11-22] MEDS ORDERED: SUGAMMADEX 500 MG/5 ML VIAL (BRIDION) IV ONE (12:24)
[2020-11-22] MEDS ORDERED: GLYCOPYRROLATE 0.2 MG/ML (ROBINUL) 2 ML VIAL ONE (12:24)
[2020-11-22] MEDS ORDERED: NEOSTIGMINE 3 MG/3 ML VIAL ONE (12:24)
[2020-11-22] MEDS ORDERED: KETOROLAC 30 MG/ML VIAL ONE (12:37)
[2020-11-22] MEDS ORDERED: HYDROmorphone 2 MG/ML VIAL (DILAUDID) IV ONE (13:15)
[2020-11-22] MEDS ORDERED: ONDANSETRON 4 MG/2 ML (SDV) Z0FRAN IVP PRN (13:15)
--- NOTE | 2020-11-22 14:00 | NUR ---
CAIT REYES presented to unit via BED from RECOVERY, accompanied by JAMMIE BYRNES, RN AND Jess LUNDBERG RN AFTER HAVING SURGERY PER DR. COSTA. VS taken. REPORT RECEIVED.
--- NOTE | 2020-11-22 14:43 | NUR ---
PT SLEEPING. VS OBTAINED.
--- NOTE | 2020-11-22 15:50 | NUR ---
PT TALKING ON THE PHONE.
--- NOTE | 2020-11-22 16:41 | NUR ---
PT UP TO THE BATHROOM WITH STAND BY ASSIST.
--- NOTE | 2020-11-22 17:55 | NUR ---
DR. COSTA NOTIFIED OF PT'S DESIRE TO BE DISCHARGED. PT VOIDED 50 CC OF BLOODY URINE AND IS CURRENTLY EATING DINNER. ORDER RECEIVED TO BLADDER SCAN PT.
--- NOTE | 2020-11-22 18:11 | NUR ---
NOTIFIED OF BLADDER SCAN RESULTS OF 41 ML. ORDER RECEIVED FOR DISCHARGE.
--- NOTE | 2020-11-22 18:25 | NUR ---
DISCHARGE PAPERS PROVIDED AND REVIEWED WITH PT, PT VERBALIZES UNDERSTANDING AND DENIES ANY NEEDS OR QUESTIONS AT THIS TIME. PAPER SIGNED.
--- NOTE | 2020-11-22 18:45 | NUR ---
PT DISCHARGED FROM [facility] TO PERSONAL AUTO VIA W/C IN STABLE CONDITION ACC BY THIS RN.
--- NOTE | 2020-11-22 22:28 | OPERATIVE REPORT ---
DATE OF SERVICE: PREOPERATIVE DIAGNOSES: 1. A 45-year-old female with chronic pelvic pain. 2. Dysmenorrhea. 3. Dysfunctional uterine bleeding. 4. BMI of 40. POSTOPERATIVE DIAGNOSES: 1. A 45-year-old female with chronic pelvic pain. 2. Dysmenorrhea. 3. Dysfunctional uterine bleeding. 4. BMI of 40. 5. Extensive pelvic peritoneal adhesions. PROCEDURE: Robotic-assisted total laparoscopic hysterectomy with bilateral salpingo-oophorectomy with lysis of adhesions greater than 30 minutes. SURGEON: Kelechi Liz DO CERTIFIED MEDICAL BILLER: Rosina Valdivia DNP, was necessary for manipulation and retraction throughout the procedure. ANESTHESIA: General endotracheal. ESTIMATED BLOOD LOSS: 250 mL. URINE OUTPUT: 200 mL clear at the end of the procedure. FLUIDS: 2 liter lactated Ringer's solution. FINDINGS: Grossly normal appearing bilateral fallopian tubes with a large multicystic structure of the left ovary. The right ovary appears grossly normal. Complete obliteration of the posterior and anterior cul-de-sac with filmy and dense peritoneal adhesions of the pelvis to the pelvic sidewall and the uterus posteriorly to the sigmoid colon and anteriorly to the bladder all the way up to the uterine fundus as well as filmy adhesions of the omentum to the anterior abdominal peritoneal surface. SPECIMEN SENT: Uterus, cervix, bilateral fallopian tubes and ovaries. INDICATIONS FOR PROCEDURE: This 45-year-old female is a patient who had been referred to my care for ongoing issues with chronic pelvic pain. She has had multiple cysts in the past. She underwent D and C earlier in the year, which failed to resolve her bleeding and painful bleeding issues. Due to more conservative measures not helping as well as contraindications to more conservative measures as well, we discussed the possibility of proceeding with robotic hysterectomy. Risks of the procedure were discussed with the patient in detail including risk of bleeding, infection, damage to surrounding structures including, but not limited to bowel, bladder, ureter, kidneys, possible need for operation, postoperative complications that could occur, recovery timeframe, risk from anesthesia, possible need for blood transfusion and even . After everything was discussed with the patient in detail, consent was obtained in the preoperative area, the patient was taken to the operating room. OPERATIVE REPORT IN DETAIL: Once in the operating room, general anesthesia was found to be adequate. She was placed in dorsal lithotomy position, prepped and draped in normal sterile fashion. Ghotra catheter was placed and a timeout was performed. A weighted speculum inserted to the patient's vagina. Right angle retractor was used to visualize the cervix. It was grasped at 12 o'clock position using a long Allis clamp and 0 Vicryl suture was then placed to anterior lip of the cervix and using my retraction point, I then gently sound the uterine cavity, depth was found to be 8 cm. I then selected an 8 cm Radha uterine manipulator tip and a 3.5 cm colpotomy ring. The manipulator tip was advanced into the uterus where the balloon was deployed and the colpotomy ring was advanced around the vaginal fornix, excellent manipulation is noted on bimanual examination after the manipulator was in place. I then removed all the other instruments from the patient's vagina, performed change of gloves, turned my attention to the abdomen where supraumbilically I infiltrated this area using 0.25% Marcaine to make an 8 mm incision with a knife and directed Veress needle through the incision, intraperitoneal placement was confirmed using saline drop test. Opening pressure of 5 mmHg was noted, proceeded to max pressure of 15 mmHg, at which point I removed the Veress needle and introduced an 8 mm laparoscopic da Denver camera trocar. Once this was in place, I am able to confirm intraperitoneal placement using the da [place] laparoscope. There were multiple adhesions obscuring my view. These were slowly taken down after I obtained other trocar access sites using the EndoShears. I am able to place two lateral trocars under direct visualization of the laparoscope after I am able to navigate through the adhesions, these were both 8 mm trocars. The skin was infiltrated using 0.25% Marcaine. Incisions were made with a knife and trocars were placed under direct visualization of laparoscope. Once these are both in place, I am able to take down some of these filmy adhesions, allowing me to visualize the pelvic anatomy as described in my findings above. I then bringing the da [place] robot in the appropriate fashion, docking the vessel sealer in the left hand and monopolar tima in the right hand. I performed the following dissection bilaterally. Starting at the infundibulopelvic ligament, I bipolar cauterized and transected using vessel sealer. I have to take a significant amount of time to take down the anterior cul-de-sac adhesions and reidentified the vesicouterine peritoneum as it has been completely obliterated from the previous surgeries and the scarring from the previous surgeries. Same thing I have to do with the posterior cul-de-sac as well, recreating a new one allowing me to visualize and separate the sigmoid colon from the posterior aspect of the cervix and the pouch of Lew. Once I have done this, I am able to grasp the round ligament, which I then bipolar cauterized and transected using vessel sealer. This allows me to grasp the broad ligament, which I am able to bipolar cauterize and transect using vessel sealer. I am able to identify and skeletonize uterine vessels laterally due to my previous takedown of the peritoneal adhesions. Once I skeletonized the uterine vessels laterally, bipolar cauterized and transected using the vessel sealer. I then created a colpotomy at 12 o'clock position using monopolar tima, took this circumferentially around the vaginal fornix amputating the cervix away from the vagina. The cervix, uterus, bilateral fallopian tubes and ovaries were then removed through the vagina. I then reapproximated the lateral vaginal apices of the vaginal cuff using 2-0 Vicryl suture in a dxmzod-xn-adnav fashion colposuspending the uterosacral ligament. In the process of doing this, I am unable to see the entirety of the vaginal cuff due to scarring of the sigmoid colon to the pelvic sidewall. Therefore, I have to place a fan retractor and do so by placing a 12 mm trocar in between my supraumbilical trocar and my right-sided trocar, it is approximately 4 cm lateral to my supraumbilical trocar. Once that is in place, the fan retractor allows me to see and reapproximate the vaginal cuff. The remainder of the vaginal cuff was then reapproximated using 2-0 V-Loc in a running fashion, after which there was no active bleeding noted from any of my dissection planes. I then copiously irrigated the pelvis using normal saline. Once again, there was no active bleeding noted from any of my dissection planes. I then undocked the da [place] robot. I scrubbed back into the surgery and approached the remainder of the case laparoscopically. I removed the 12 mm trocar under direct visualization of the laparoscope and placed an 0 Vicryl suture through the fascia using the Tim-Frida. Once this was done, fascial reapproximation is appreciated on digital exploration of the incision. I then removed the lateral trocars, which were 8 mm trocars under direct visualization of laparoscope. The supraumbilical trocar was left in place to release insufflation and introduced 10 mL of 0.25% Marcaine into the peritoneal cavity for postoperative pain management. Before all of this was done, the vaginal cuff was covered with Surgiflo hemostatic agent to ensure excellent postoperative hemostasis. After all the trocars were removed, the skin of all the trocar sites were then reapproximated using 4-0 Monocryl in interrupted subcuticular stitches. Dermabond was applied to incision and bandage placed over the incisions as well. Ghotra catheter was left in place. The patient tolerated the procedure well and sent to recovery area in stable condition. Lap and sponge counts were correct at the end of the procedure. Instrument counts correct as well. Two grams of Ancef, 500 mg of Flagyl were given preoperatively for infection prophylaxis. Job ID: [id number] DocumentID: [id number] Dictated Date: 11/22/2020 15:29:25 Digital Marketing Apprentice Date: 11/22/2020 22:28:04 Dictated By: DO FEMI ARCHIBALD
[2020-11-23] MEDS ORDERED: IBUPROFEN 600 MG (MOTRIN) TAB PO SCH (02:30)
--- NOTE | 2020-11-23 14:39 | Anesthesia-General Post-Op ---
General Patient Condition Mental Status/LOC: Same as Preop Cardiovascular: Satisfactory Nausea/Vomiting: Absent Respiratory: Satisfactory Pain: Controlled Complications: Absent Post Op Complications Complications None Follow Up Care/Instructions Patient Instructions None needed. Anesthesia/Patient Condition Patient Condition Patient is already discharged to home but she was doing well prior to her discharge to home per nursing staff; no complaints, stable vital signs, no apparent adverse anesthesia problems. ALFREDO URIOSTEGUI DO Nov 23, 2020 14:39
== END 2020-11-22 18:45 | disposition home or self-care (01) ==
LOC: SDC 08:16 → WS 14:00 → SDC 18:45
PROVIDERS: ATTEND Obstetrics & Gynecology
DX: N94.6 Dysmenorrhea, unspecified (principal); D27.1 Benign neoplasm of left ovary; D28.2 Benign neoplasm of uterine tubes and ligaments; N83.11 Corpus luteum cyst of right ovary; N83.8 Other noninflammatory disorders of ovary, fallopian tube and broad ligament; N88.8 Other specified noninflammatory disorders of cervix uteri; N93.9 Abnormal uterine and vaginal bleeding, unspecified; G89.29 Other chronic pain; K66.0 Peritoneal adhesions (postprocedural) (postinfection); F41.9 Anxiety disorder, unspecified; I10 Essential (primary) hypertension; E66.01 Morbid (severe) obesity due to excess calories; Z68.39 Body mass index [BMI] 39.0-39.9, adult; Z79.899 Other long term (current) drug therapy; Z88.0 Allergy status to penicillin; Z91.041 Radiographic dye allergy status; Z88.1 Allergy status to other antibiotic agents; Z91.013 Allergy to seafood; Z88.8 Allergy status to other drugs, medicaments and biological substances
CPT/HCPCS: 36415; 84703; 85025; 86850; 86900; 86901; 87081; 88307

== ENCOUNTER → 2022-02-17 | Outpatient (CLI) | payer SELFPAY ==
[~2022-02-17] MED LIST changes: +CALC-308 PO; +DOCU-239 PO; -DULO60CA6 PO; +DULO60CA7 PO; +HYDR-34 PO; +IBUP-844 PO; -LISI10TA2 PO; +LISI10TA25 PO; +PNV1TABL9 PO; +SIME80TA16 PO
--- NOTE | 2022-02-17 10:35 | Diagnostic Imaging Report ---
Indication: Left shoulder pain. Time Of Exam: 10:26 AM 3 views of the left shoulder show normal glenohumeral and coracoacromial alignment. Acromiohumeral space is normal. No fracture or dislocation is identified. Impression: No acute bony abnormality is identified. Dictated by: Dictated on workstation # [id number]
== END ==
LOC: RAD FS 10:17
PROVIDERS: ATTEND Nurse Practitioner Family
DX: M25.512 Pain in left shoulder (principal)
CPT/HCPCS: 73030

== ENCOUNTER → 2022-05-02 | Outpatient (CLI) | payer SELFPAY ==
--- NOTE | 2022-05-02 17:56 | Diagnostic Imaging Report ---
INDICATION: Right ankle pain. Time of Exam: 5:13 PM 3 views of the right ankle were obtained. Alignment is normal. Ankle mortise is well maintained. Talar dome is smooth. No fracture or dislocation is seen. There are posterior and plantar calcaneal spurs. IMPRESSION: No acute abnormality is detected. Dictated by: Dictated on workstation # [id number]
== END ==
LOC: RAD FS 16:54
PROVIDERS: ATTEND Nurse Practitioner Family
DX: M67.879 Other specified disorders of synovium and tendon, unspecified ankle and foot (principal); M79.671 Pain in right foot; M25.571 Pain in right ankle and joints of right foot
CPT/HCPCS: 73610

== ENCOUNTER 2022-06-07 18:49 | Emergency (ER) | payer SELFPAY ==
[~2022-06-07] VITALS: Ht 176 cm; Wt 117.0 kg
--- NOTE | 2022-06-07 19:09 | ED Abdominal Pain ---
General Stated Complaint: R SIDE ABD/BACK PAIN History of Present Illness Date Seen by Provider: Jun 07, 2022 Time Seen by Provider: 19:03 Initial Comments 46-year-old female with PMH of heart valve replacement (does not know which valve)/DM 2/obesity/recurrent kidney stones, is here with complaints of right flank pain and RUQ pain for the past 1 week which has been progressively worsening. Today it is 10/10 pain. She has associated nausea. Denies fever, dysuria, hematuria, vomiting, chest pain, SOB. Allergies and Home Medications Allergies Coded Allergies: Penicillins (Verified Allergy, Unknown, 03/27/19) amoxicillin (Verified Allergy, Unknown, 11/22/20) fish oil (Verified Allergy, Unknown, 06/30/20) fluticasone (Verified Allergy, Unknown, 03/27/19) mometasone furoate (Verified Allergy, Unknown, 06/30/20) Uncoded Allergies: IV CONTRAST (Allergy, Unknown, 06/30/20) SEAFOOD (Allergy, Unknown, 06/30/20) Patient Home Medication List Home Medication List Reviewed: Yes Aspirin (Aspirin EC) 81 Mg Tablet.dr, 81 MG PO DAILY, (Reported) Entered as Reported by: MIKAEL THOMPSON on 06/30/20 1041 Calcium Carbonate (Calcium) Unknown Strength Tab.chew, Unknown Dose PO DAILY, (Reported) Entered as Reported by: NEGAR MORRIS on 11/22/20 0933 Docusate Sodium (Dok) 100 Mg Capsule, 100 MG PO BID PRN for CONSTIPATION-1ST LINE Prescribed by: ARTI COSTA on 11/22/20 09 Duloxetine HCl (Cymbalta) 60 Mg Capsule.dr, 60 MG PO DAILY, (Reported) Entered as Reported by: MIKAEL THOMPSON on 06/30/20 1041 Hydrochlorothiazide (Hydrochlorothiazide) 25 Mg Tablet, 25 MG PO DAILY, (Reported) Entered as Reported by: MIKAEL THOMPSON on 06/30/20 1041 Hydrocodone Bit/Acetaminophen (HYDROcodone/APAP 7.5/325 TAB) 1 Ea Tablet, 2 EA PO Q6H PRN for Pain-See Instructions Prescribed by: ARTI COSTA on 11/22/20 09 Ibuprofen (Ibu) 600 Mg Tablet, 600 MG PO Q6H Prescribed by: ARTI COSTA on 11/22/20 0942 Lisinopril (Lisinopril) 10 Mg Tablet, 10 MG PO DAILY, (Reported) Entered as Reported by: MIKAEL THOMPSON on 06/30/20 1041 Loratadine (Loratadine) 10 Mg Tablet, 10 MG PO DAILY, (Reported) Entered as Reported by: MIKAEL THOMPSON on 06/30/20 1041 Metoprolol Tartrate (Metoprolol Tartrate) 50 Mg Tablet, 50 MG PO BID, (Reported) Entered as Reported by: MIKAEL THOMPSON on 06/30/20 1041 Pnv Cmb#21/Iron/Folic Acid ( Complete Caplet) 1 Each Tablet, 1 EACH PO DAILY, (Reported) Entered as Reported by: NEGAR MORRIS on 11/22/20 0933 Simethicone (Simethicone) 80 Mg Tab.chew, 40 MG PO TID PRN for INDIGESTION 2ND LINE Prescribed by: ARTI COSTA on 11/22/20 0942 Temazepam (Temazepam) 7.5 Mg Capsule, 7.5 MG PO HS, (Reported) Entered as Reported by: MIKAEL THOMPSON on 06/30/20 104 Review of Systems Review of Systems Constitutional: no symptoms reported EENTM: No Symptoms Reported Respiratory: No Symptoms Reported Cardiovascular: No Symptoms Reported Gastrointestinal: Abdominal Pain, Nausea Genitourinary: Flank Pain Musculoskeletal: no symptoms reported Skin: no symptoms reported Psychiatric/Neurological: No Symptoms Reported Endocrine: No Symptoms Reported Hematologic/Lymphatic: No Symptoms Reported Past Vhqeazv-Rxgiyk-Uroccy Hx Immunizations Up To Date Tetanus Booster (TDap): Unknown Seasonal Allergies Seasonal Allergies: No Past Medical History Appendectomy, Section Respiratory: No Currently Using CPAP: No Currently Using BIPAP: No Cardiac: No Neurological: No Genitourinary: No Gastrointestinal: No Musculoskeletal: No Endocrine: No HEENT: No Cancer: No Psychosocial: No Integumentary: No Blood Disorders: No Physical Exam Vital Signs Vital Signs - First Documented 06/07/22 19:09 Temp 37.0 Pulse 86 Resp 20 B/P (MAP) 139/83 (101) Pulse Ox 95 O2 Delivery Room Air Capillary Refill : Height/Weight/BMI Height: 5'9.00" Weight: 225lbs. oz. 102.756583ay; 39.92 BMI Method:Stated General Appearance: moderate distress HEENT: PERRL/EOMI Neck: full range of motion Respiratory: chest non-tender, lungs clear, normal breath sounds Cardiovascular: regular rate, rhythm, no edema Gastrointestinal: normal bowel sounds, soft, no pulsatile mass, tenderness (RUQ ) Extremities: normal range of motion Back: normal inspection, no vertebral tenderness, CVA tenderness (R) Neurologic/Psychiatric: no motor/sensory deficits, alert, normal mood/affect, oriented x 3 Skin: normal color Lymphatic: no adenopathy Focused Exam Lactate Level 06/07/22 19:28: Lactic Acid Level 2.12*H Lactic Acid Level Laboratory Tests Test 06/07/22 19:28 Lactic Acid Level 2.12 MMOL/L (0.50-2.00) *H Progress/Results/Core Measures Results/Orders Lab Results Laboratory Tests Test 06/07/22 18:57 06/07/22 19:28 Range/Units Urine Color YELLOW Urine Clarity CLEAR Urine pH 6.5 5-9 Urine Specific Ferdinand 1.010 L 1.016-1.022 Urine Protein NEGATIVE NEGATIVE Urine Glucose (UA) NEGATIVE NEGATIVE Urine Ketones NEGATIVE NEGATIVE Urine Nitrite NEGATIVE NEGATIVE Urine Bilirubin NEGATIVE NEGATIVE Urine Urobilinogen 0.2 < = 1.0 MG/DL Urine Leukocyte Esterase NEGATIVE NEGATIVE Urine RBC (Auto) NEGATIVE NEGATIVE Urine RBC NONE /HPF Urine WBC 0-2 /HPF Urine Squamous Epithelial Cells 5-10 /HPF Urine Crystals NONE /LPF Urine Bacteria NEGATIVE /HPF Urine Casts NONE /LPF Urine Mucus NEGATIVE /LPF Urine Culture Indicated NO Urine Test NEGATIVE NEGATIVE Urine Opiates Screen NEGATIVE NEGATIVE Urine Oxycodone Screen NEGATIVE NEGATIVE Urine Methadone Screen NEGATIVE NEGATIVE Urine Propoxyphene Screen NEGATIVE NEGATIVE Urine Barbiturates Screen NEGATIVE NEGATIVE Ur Tricyclic Antidepressants Screen POSITIVE H NEGATIVE Urine Phencyclidine Screen NEGATIVE NEGATIVE Urine Amphetamines Screen NEGATIVE NEGATIVE Urine Methamphetamines Screen NEGATIVE NEGATIVE Urine Benzodiazepines Screen NEGATIVE NEGATIVE Urine Cocaine Screen NEGATIVE NEGATIVE Urine Cannabinoids Screen NEGATIVE NEGATIVE White Blood Count 10.4 4.3-11.0 10^3/uL Red Blood Count 4.11 3.80-5.11 10^6/uL Hemoglobin 13.5 11.5-16.0 g/dL Hematocrit 38 35-52 % Mean Corpuscular Volume 93 80-99 fL Mean Corpuscular Hemoglobin 33 25-34 pg Mean Corpuscular Hemoglobin Concent 35 32-36 g/dL Red Cell Distribution Width 12.1 10.0-14.5 % Platelet Count 246 130-400 10^3/uL Mean Platelet Volume 10.4 9.0-12.2 fL Immature Granulocyte % (Auto) 0 % Neutrophils (%) (Auto) 50 42-75 % Lymphocytes (%) (Auto) 39 12-44 % Monocytes (%) (Auto) 8 0-12 % Eosinophils (%) (Auto) 3 0-10 % Basophils (%) (Auto) 1 0-10 % Neutrophils # (Auto) 5.2 1.8-7.8 10^3/uL Lymphocytes # (Auto) 4.0 1.0-4.0 10^3/uL Monocytes # (Auto) 0.8 0.0-1.0 10^3/uL Eosinophils # (Auto) 0.3 0.0-0.3 10^3/uL Basophils # (Auto) 0.1 0.0-0.1 10^3/uL Immature Granulocyte # (Auto) 0.0 0.0-0.1 10^3/uL Sodium Level 142 135-145 MMOL/L Potassium Level 4.0 3.6-5.0 MMOL/L Chloride Level 100 98-107 MMOL/L Carbon Dioxide Level 29 21-32 MMOL/L Anion Gap 13 5-14 MMOL/L Blood Urea Nitrogen 11 7-18 MG/DL Creatinine 0.99 0.60-1.30 MG/DL Estimat Glomerular Filtration Rate 72 BUN/Creatinine Ratio 11 Glucose Level 122 H 70-105 MG/DL Lactic Acid Level 2.12 *H 0.50-2.00 MMOL/L Calcium Level 8.9 8.5-10.1 MG/DL Corrected Calcium 8.7 8.5-10.1 MG/DL Magnesium Level 2.2 1.6-2.4 MG/DL Total Bilirubin 0.2 0.1-1.0 MG/DL Aspartate Amino Transf (AST/SGOT) 28 5-34 U/L Alanine Aminotransferase (ALT/SGPT) 43 0-55 U/L Alkaline Phosphatase 47 40-136 U/L Total Protein 7.3 6.4-8.2 GM/DL Albumin 4.3 3.2-4.5 GM/DL Lipase 30 8-78 U/L Serum Alcohol < 10 <10 MG/DL My Kaleb Manuel - EVY HOWARD MD Ct Abdomen/Pelvis Wo (06/07/22 19:15) Alcohol (06/07/22 19:16) Cbc With Automated Diff (06/07/22 19:16) Comprehensive Metabolic Panel (06/07/22 19:16) Drug Screen Stat (Urine) (06/07/22 19:16) Lactic Acid Analyzer (06/07/22 19:16) Lipase (06/07/22 19:16) Magnesium (06/07/22 19:16) Ua Culture If Indicated (06/07/22 19:16) Hcg,Qualitative Urine (06/07/22 19:17) Ketorolac Injection (Toradol Injection) (06/07/22 19:30) Ed Iv/Invasive Line Start (06/07/22 19:18) Ns Iv 1000 Ml (Sodium Chloride 0.9%) (06/07/22 19:30) Hydromorphone Injection (Dilaudid Inject (06/07/22 20:25) Medications Given in ED Current Medications Medications Dose Ordered Sig/Clark Route Start Time Stop Time Status Last Admin Dose Admin Ketorolac Tromethamine 15 mg ONCE ONCE IV 06/07/22 19:30 06/07/22 19:31 DC 06/07/22 19:29 15 MG Vital Signs/I&O 06/07/22 19:09 Temp 37.0 Pulse 86 Resp 20 B/P (MAP) 139/83 (101) Pulse Ox 95 O2 Delivery Room Air Progress Progress Note : Progress Note 1. RIGHT FLANK & RUQ PAIN/ DEHYDRATION/ FATTY LIVER/ DIVERTICULI WITHOUT DIVERTICULOSIS/ Possibility of osseous metastases - CT ABD WITHOUT CONTRAST: Hepatic steatosis. Diverticuli in the sigmoid colon without evidence of acute diverticulitis. Nonspecific sclerotic lesions involving the superior endplateof L3 and inferior left pubic ramus. Findings can be seen with osseous metastatic disease. Recommend correlation with patient history and if indicated MRI of the lumbar spine and pelvis with and without contrast to further evaluate. - Labs:unremarkable except for elevated lactic acid of 2.12, likely due to dehydration. WBC and neutrophils and UA are normal - UA/ UDS unremarkable - NS IVF bolus STAT - Toradol 15mg iv STAT, did not help the pain - Dilaudid 0.5mg iv STAT - Pt will need follow up with PCP for MRI with and without contrast as recommended by radiology - Pain control with percocet prescription -The patient was seen in the ED, and treated appropriately to presentation at a specific point in time. Patient is informed that there is a possibility that dis ease and illness can evolve and change in acuity rapidly or slowly after patient is discharged from the ER. Precautionary advice given to the patient for immediate return to ER if symptoms worsen or do not resolve, and to seek emergency care sooner rather than later. Pt also advised on the importance of PCP follow up and compliance with management and follow up plan with PCP and/or specialist, as this is part of the management plan. Pt verbally expressed understanding. Diagnostic Imaging Diagonstic Imaging: CT Plain Films/CT/US/NM/MRI: abdomen Comments NAME: CAIT REYES [facility] REC#: [id number] PT STATUS: REG ER : 1975 PHYSICIAN: EVY HOWARD MD ADMIT DATE: 06/07/22/ER FS Draft Date of Exam:06/07/22 CT ABDOMEN/PELVIS WO PROCEDURE: CT abdomen and pelvis without contrast. TECHNIQUE: Multiple contiguous axial images were obtained through the abdomen and pelvis without the use of intravenous contrast. Auto Exposure Controls were utilized during the CT exam to meet ALARA standards for radiation dose reduction. INDICATION: Right-sided flank pain. COMPARISON: None. FINDINGS: The heart is unremarkable. The lung bases are clear. There is hepatic steatosis. Scattered areas of fatty sparing is seen. The gallbladder is nondistended. The liver, spleen, pancreas, adrenal glands, and kidneys have a normal appearance. There is no pathologically enlarged mesenteric or retroperitoneal adenopathy. The bowel loops are nondilated. Diverticuli are seen in the sigmoid colon without evidence of acute diverticulitis. There is no free fluid or free air. No acute fracture is seen in the abdomen and pelvis. Nonspecific sclerotic lesion is seen in the superior endplate of L3. There is also sclerosis in the inferior left pubic ramus. Ureters and bladder are normal. There is no free air, loculated collection, or adenopathy in the pelvis. IMPRESSION: 1. Hepatic steatosis. Recommend correlation with LFTs. 2. Diverticuli in the sigmoid colon without evidence of acute diverticulitis. 3. Nonspecific sclerotic lesions involving the superior endplate of L3 and inferior left pubic ramus. Findings can be seen with osseous metastatic disease. Recommend correlation with patient history and if indicated MRI of the lumbar spine and pelvis with and without contrast to further evaluate. Dictated on workstation # [id number] Dict: 06/07/221951 Trans: 06/07/221957 [facility] [id number] Interpreted by: MIESHA ROBINS DO Electronically signed by: Departure Impression Primary Impression: Abdominal pain with radiation to back Additional Impressions: Osseous metastasis Hepatic steatosis Diverticulosis of colon without diverticulitis Disposition: HOME, SELF-CARE Condition: Stable Departure-Patient Inst. Referrals: CAMERON MCGRATH APRN (PCP) Primary Care Physician [facility] (Family) Primary Care Physician Patient Instructions: Abdominal Pain, Adult ED, Bone Metastases, Diverticulosis (DC), Nonalcoholic Fatty Liver Disease (DC) Add. Discharge Instructions: - will need follow up with PCP in the next 3 to 7 days for MRI with and without contrast as recommended by radiology - Pain control with percocet prescription - Adequate hydration advised Scripts Oxycodone HCl/Acetaminophen (Percocet 5-325 mg Tablet) 1 Each Tablet 1 TAB PO Q6H for PAIN-MODERATE MDD 6 TABS for 3 Days, #8 TAB Prov: EVY HOWARD MD 06/07/22 EVY HOWARD MD Jun 07, 2022 19:09
[2022-06-07 19:27] LABS: BILIRUBIN,URINE NEGATIVE (NEGATIVE); CLARITY,URINE CLEAR; COLOR,URINE YELLOW; GLUCOSE, URINE (UA) NEGATIVE (NEGATIVE); HCG,QUALITATIVE URINE NEGATIVE (NEGATIVE); KETONES,URINE NEGATIVE (NEGATIVE); LEUKOCYTE ESTERASE ,URINE NEGATIVE (NEGATIVE); NITRITE,URINE NEGATIVE (NEGATIVE); PH,URINE 6.5 (5-9); PROTEIN,URINE NEGATIVE (NEGATIVE)
[2022-06-07] MEDS ORDERED: NS IV 1000 ML 1,000 ML IV SCH (19:30)
[2022-06-07] MEDS ORDERED: KETOROLAC 30 MG/ML VIAL IV ONE (19:30)
[2022-06-07 19:32] LABS: BACTERIA,URINE NEGATIVE /HPF; WBC,URINE 0-2 /HPF
[2022-06-07 19:36] LABS: AMPHETAMINE SCREEN, URINE NEGATIVE (NEGATIVE); BARBITURATE SCREEN URINE NEGATIVE (NEGATIVE); BENZODIAZEPINES SCREEN URINE NEGATIVE (NEGATIVE); CANNABINOID SCREEN, URINE NEGATIVE (NEGATIVE); COCAINE SCREEN URINE NEGATIVE (NEGATIVE); METHADONE STAT NEGATIVE (NEGATIVE); OPIATE SCREEN URINE NEGATIVE (NEGATIVE); OXYCODONE STAT NEGATIVE (NEGATIVE); PROPOXYPHENE STAT NEGATIVE (NEGATIVE); TRICYCLIC ANTIDEPRESSANTS SCRE POSITIVE (NEGATIVE)
[2022-06-07 19:36] LABS: BASOPHILS # (AUTO) 0.1 10^3/uL (0.0-0.1); BASOPHILS % (AUTO) 1 % (0-10); EOSINOPHILS # (AUTO) 0.3 10^3/uL (0.0-0.3); EOSINOPHILS % (AUTO) 3 % (0-10); HEMATOCRIT 38 % (35-52); HEMOGLOBIN 13.5 g/dL (11.5-16.0); LYMPHOCYTES % (AUTO) 39 % (12-44); MEAN CORPUSCULAR HEMOGLOBIN 33 pg (25-34); MEAN CORPUSCULAR HGB CONC 35 g/dL (32-36); MEAN CORPUSCULAR VOLUME 93 fL (80-99); MEAN PLATELET VOLUME 10.4 fL (9.0-12.2); MONOCYTES # (AUTO) 0.8 10^3/uL (0.0-1.0); MONOCYTES % (AUTO) 8 % (0-12); NEUTROPHILS # (AUTO) 5.2 10^3/uL (1.8-7.8); NEUTROPHILS % (AUTO) 50 % (42-75); PLATELET COUNT 246 10^3/uL (130-400); WHITE BLOOD COUNT 10.4 10^3/uL (4.3-11.0)
--- NOTE | 2022-06-07 19:59 | Diagnostic Imaging Report ---
PROCEDURE: CT abdomen and pelvis without contrast. TECHNIQUE: Multiple contiguous axial images were obtained through the abdomen and pelvis without the use of intravenous contrast. Auto Exposure Controls were utilized during the CT exam to meet ALARA standards for radiation dose reduction. INDICATION: Right-sided flank pain. COMPARISON: None. FINDINGS: The heart is unremarkable. The lung bases are clear. There is hepatic steatosis. Scattered areas of fatty sparing is seen. The gallbladder is nondistended. The liver, spleen, pancreas, adrenal glands, and kidneys have a normal appearance. There is no pathologically enlarged mesenteric or retroperitoneal adenopathy. The bowel loops are nondilated. Diverticuli are seen in the sigmoid colon without evidence of acute diverticulitis. There is no free fluid or free air. No acute fracture is seen in the abdomen and pelvis. Nonspecific sclerotic lesion is seen in the superior endplate of L3. There is also sclerosis in the inferior left pubic ramus. Ureters and bladder are normal. There is no free air, loculated collection, or adenopathy in the pelvis. IMPRESSION: 1. Hepatic steatosis. Recommend correlation with LFTs. 2. Diverticuli in the sigmoid colon without evidence of acute diverticulitis. 3. Nonspecific sclerotic lesions involving the superior endplate of L3 and inferior left pubic ramus. Findings can be seen with osseous metastatic disease. Recommend correlation with patient history and if indicated MRI of the lumbar spine and pelvis with and without contrast to further evaluate. Dictated by: Dictated on workstation # [id number]
[2022-06-07 20:05] LABS: BUN/CREATININE RATIO 11; CARBON DIOXIDE 29 MMOL/L (21-32); CHLORIDE 100 MMOL/L (98-107); CREATININE SERUM 0.99 MG/DL (0.60-1.30); GFR ESTIMATED 72; SODIUM 142 MMOL/L (135-145)
[2022-06-07 20:06] LABS: ALANINE AMINOTRANSFERASE 43 U/L (0-55); ALBUMIN 4.3 GM/DL (3.2-4.5); ALKALINE PHOSPHATASE 47 U/L (40-136); BILIRUBIN,TOTAL 0.2 MG/DL (0.1-1.0); CALCIUM 8.9 MG/DL (8.5-10.1); GLUCOSE 122 MG/DL (70-105); LIPASE 30 U/L (8-78); MAGNESIUM 2.2 MG/DL (1.6-2.4); TOTAL PROTEIN 7.3 GM/DL (6.4-8.2)
[2022-06-07] MEDS ORDERED: HYDROmorphone 2 MG/ML VIAL (DILAUDID) IV STA (20:25)
[2022-06-07] MEDS ORDERED: OXYC1TAB87 PO (20:38)
[2022-06-07 21:13] VITALS: BP 139/83
== END 2022-06-07 21:13 | disposition home or self-care (01) ==
LOC: EDUNIT# 18:49 → ER FS 18:51
DX: K57.90 Diverticulosis of intestine, part unspecified, without perforation or abscess without bleeding (principal); K76.0 Fatty (change of) liver, not elsewhere classified; C41.9 Malignant neoplasm of bone and articular cartilage, unspecified
CPT/HCPCS: 36415; 74176; 80053; 80306; 81000; 83605; 83690; 83735; 84703; 85025; G0480; 80320

== ENCOUNTER → 2022-06-15 | Outpatient (CLI) | payer OTHER ==
[~2022-06-15] MED LIST changes: +OXYC1TAB87 PO
--- NOTE | 2022-06-15 09:42 | Diagnostic Imaging Report ---
INDICATION: PROCEDURE: Ultrasound abdomen complete. TECHNIQUE: Multiple real-time grayscale images were obtained of the abdomen in various projections. INDICATION: Abdominal pain with abnormal liver enzyme. Comparison CT scan 06/07/2022. FINDINGS: The liver is considerably enlarged and echogenic measuring approximately 23 cm in long axis. No focal lesions are seen. The bile ducts are not dilated. The gallbladder appears normal. Common bile duct is obscured by bowel gas and fatty changes of the liver. The pancreas is also obscured. The spleen measures 12 cm. The aorta measures 2 cm. The IVC and portal vein are normal with Doppler sampling. Right kidney measures 11.6 x 5.2 x 4 cm. Left kidney measures 11.8 x 5.2 x 5 cm. No hydronephrosis or calculi. There is no ascites. Negative Manzano sign. IMPRESSION: 1. Study was limited due to body habitus and bowel gas. Structures visualized show hepatomegaly with fatty change. This does appear quite similar to CT scan. Dictated by: Dictated on workstation # [id number]
== END ==
LOC: RAD FS 07:43
PROVIDERS: ATTEND Allergy & Immunology
DX: R10.9 Unspecified abdominal pain (principal); R94.5 Abnormal results of liver function studies
CPT/HCPCS: 76700

== ENCOUNTER → 2022-06-19 | Outpatient (CLI) | payer OTHER ==
[~2022-06-19] MED LIST changes: +GADOTERATE 0.5 MMOL/ML (CLARISCAN) 20 ML VIAL IV ONE; +GADOTERATE 0.5 MMOL/ML (CLARISCAN) 5 ML VIAL IV ONE
--- NOTE | 2022-06-19 15:00 | Diagnostic Imaging Report ---
EXAMINATION: Lumbar spine MRI with and without contrast, 06/19/2022. TECHNIQUE: Multiplanar, multisequence MRI of the lumbar spine was performed with and without contrast. INDICATION: Possible lesion in the lumbar spine seen on recent imaging. Right flank pain. COMPARISON: Correlation made with CT abdomen and pelvis from 06/07/2022. FINDINGS: There is normal height and alignment of the vertebral bodies with the tip of the conus unremarkable in appearance and location. Examination is somewhat limited by motion artifact on several sequences. The lesion described along the superior endplate at L3 is vaguely seen on this examination. Predominantly, there is focal T1 and T2 hypointensity deep to the superior endplate suggesting possible sclerosis. A sclerotic metastatic lesion is not completely excluded. However, no associated enhancement is seen on postcontrast imaging. The postcontrast axial images are markedly limited by motion. L1-L2: There is bilateral facet and ligamentum flavum hypertrophy. There is secondary bilateral moderate neural foraminal narrowing with no significant central stenosis. L2-L3: There is minimal broad-based bulging disc material with bilateral facet and ligamentum flavum hypertrophy. There is secondary [id number] central stenosis. There is moderate bilateral neural foraminal narrowing. L3-L4: There is disc desiccation with a mild broad-based bulging disc. There is bilateral facet and ligamentum flavum hypertrophy. There is secondary mild central stenosis. There is moderate bilateral neural foraminal narrowing. L4-L5: There is disc desiccation with a mild broad-based bulging disc. There is bilateral facet and ligamentum flavum hypertrophy. There is mild central stenosis. There is moderate bilateral neural foraminal stenosis. L5-S1: There is a mild central disc extrusion. There is bilateral facet and ligamentum flavum hypertrophy. No central stenosis is appreciated. The neural foramina are patent. Postcontrast images demonstrate no abnormally enhancing lesions. The visualized intra-abdominal structures appear unremarkable. IMPRESSION: 1. Multilevel degenerative findings as described above with no significant central or neural foraminal stenosis. 2. Nonspecific sclerotic appearing lesion at L3 without associated enhancement. This could possibly represent a large area of sclerosis associated with degenerative disease with a bone island less likely given its non-discrete appearance. If there is concern for a metastatic process, bone scan recommended for further characterization. Dictated by: Dictated on workstation # [id number]
--- NOTE | 2022-06-19 17:36 | Diagnostic Imaging Report ---
PROCEDURE: MRI pelvis with and without contrast. TECHNIQUE: Multiplanar, multisequence MRI of the pelvis was performed with and without contrast. DATE: June 19, 2022. INDICATION: 46-year-old female, evaluation for bone lesions of the pelvis and lumbar spine. COMPARISON: CT abdomen and pelvis June 07, 2022. MRI lumbar spine June 19, 2022. FINDINGS: There is abnormal low signal in the left ischium and inferior pubic ramus correlating with area of sclerosis seen on prior CT. There is no identified cortical or aggressive bone destruction. There is no identified contrast enhancement specifically within the bone at this location. There is severe bilateral common hamstring tendinopathy. There is adjacent soft tissue enhancement on the left. There is no additionally identified bone lesion in the included [id number]. The L3 vertebral body is specifically not in the included [id number]. There is no acute fracture. There is no evidence of osteonecrosis. The bilateral gluteus minimus and medius tendons as well as the bilateral iliopsoas tendons and additional tendons not already described above are intact. There is unremarkable intramuscular signal and normal muscle bulk. There is no identified fluid-filled labral tear or paralabral cyst. There is no hip joint effusion. Unremarkable appearance of the sacroiliac joints. Additional soft tissue assessment is unremarkable. IMPRESSION: 1. Sclerotic lesion involving the left ischium and left inferior pubic ramus correlating with lesion seen on recent CT abdomen and pelvis exam on June 07, 2022. This lesion does not contrast enhance; however, it remains indeterminate. A sclerotic bone metastasis is in the differential diagnosis, especially considering the additional sclerotic lesion of the L3 vertebral body seen on prior CT. Correlation with earlier prior imaging if available to assess for possible stability would be recommended. If comparison imaging is not available, nuclear medicine bone scan and workup for malignancies which may be associated with a sclerotic bone metastasis is recommended. 2. Severe bilateral common hamstring tendinopathy. 3. Unremarkable appearance of the hip joints. Dictated by: Dictated on workstation # [id number]
== END ==
LOC: RAD 12:30
PROVIDERS: ATTEND Nurse Practitioner Family
DX: M47.816 Spondylosis without myelopathy or radiculopathy, lumbar region (principal); M48.061 Spinal stenosis, lumbar region without neurogenic claudication; M51.26 Other intervertebral disc displacement, lumbar region; M47.817 Spondylosis without myelopathy or radiculopathy, lumbosacral region; M51.27 Other intervertebral disc displacement, lumbosacral region; M89.9 Disorder of bone, unspecified
CPT/HCPCS: 72158; 72197

== ENCOUNTER → 2022-07-21 | Outpatient (CLI) | payer OTHER ==
[~2022-07-21] MED LIST changes: -GADOTERATE 0.5 MMOL/ML (CLARISCAN) 20 ML VIAL IV ONE; -GADOTERATE 0.5 MMOL/ML (CLARISCAN) 5 ML VIAL IV ONE
--- NOTE | 2022-07-21 15:07 | Diagnostic Imaging Report ---
INDICATION: Lumbar spine lesion. TECHNIQUE: Patient was administered 25.6 mCi technetium-99m MDP intravenously, and whole body imaging was performed after a three-hour delay. Comparison is made with MRI of the lumbar spine from 06/19/[address] of the abdomen and pelvis study from 06/07/2022. FINDINGS: There is normal uptake of activity by the axial and appendicular skeleton. There is uptake by the kidneys with excretion into the urinary bladder. Small focus of uptake in the lower thoracic spine is seen which is likely degenerative. No abnormal uptake is seen at L3 at the site of abnormal sclerosis noted on CT and MRI. No suspicious foci are identified to suggest osseous metastatic disease. IMPRESSION: No scintigraphic evidence of osseous metastatic disease. Dictated by: Dictated on workstation # [id number]
== END ==
LOC: CARD 11:00
PROVIDERS: ATTEND Nurse Practitioner Family
DX: M89.9 Disorder of bone, unspecified (principal); M54.50 Low back pain, unspecified; R93.5 Abnormal findings on diagnostic imaging of other abdominal regions, including retroperitoneum; R93.7 Abnormal findings on diagnostic imaging of other parts of musculoskeletal system
CPT/HCPCS: 78306; A9503

== ENCOUNTER 2022-09-20 13:40 | Emergency (ER) | payer OTHER ==
[~2022-09-20] VITALS: Ht 172.7 cm; Wt 122.6 kg
--- NOTE | 2022-09-20 13:55 | ED Lower Extremity ---
General Chief Complaint: Lower Extremity Stated Complaint: RT FOOT INJ History of Present Illness Date Seen by Provider: Sep 20, 2022 Time Seen by Provider: 13:55 Initial Comments 47-year-old female presents with right heel pain and right posterior leg pain. Patient states that yesterday she had a door fall on it. That continues to hurt today. She is not taking her training for the pain. She is able to ambulate. She has a small abrasion on the posterior aspect of the heel with some mild swelling. No other injury reported. Allergies and Home Medications Allergies Coded Allergies: Penicillins (Verified Allergy, Unknown, 03/27/19) amoxicillin (Verified Allergy, Unknown, 11/22/20) fish oil (Verified Allergy, Unknown, 06/30/20) fluticasone (Verified Allergy, Unknown, 03/27/19) mometasone furoate (Verified Allergy, Unknown, 06/30/20) Uncoded Allergies: IV CONTRAST (Allergy, Unknown, 06/30/20) SEAFOOD (Allergy, Unknown, 06/30/20) Patient Home Medication List Home Medication List Reviewed: Yes Aspirin (Aspirin EC) 81 Mg Tablet., 81 MG PO DAILY, (Reported) Entered as Reported by: MIKAEL THOMPSON on 06/30/20 104 Calcium Carbonate (Calcium) Unknown Strength Tab.chew, Unknown Dose PO DAILY, (R eported) Entered as Reported by: NEGAR MORRIS on 11/22/20 09 Docusate Sodium (Dok) 100 Mg Capsule, 100 MG PO BID PRN for CONSTIPATION-1ST LINE Prescribed by: ARTI COSTA on 11/22/20 09 Duloxetine HCl (Cymbalta) 60 Mg Capsule., 60 MG PO DAILY, (Reported) Entered as Reported by: MIKAEL THOMPSON on 06/30/20 104 Hydrochlorothiazide (Hydrochlorothiazide) 25 Mg Tablet, 25 MG PO DAILY, (Reported) Entered as Reported by: MIKAEL THOMPSON on 06/30/20 104 Hydrocodone Bit/Acetaminophen (HYDROcodone/APAP 7.5/325 TAB) 1 Ea Tablet, 2 EA PO Q6H PRN for Pain-See Instructions Prescribed by: ARTI COSTA on 11/22/20941 Ibuprofen (Ibu) 600 Mg Tablet, 600 MG PO Q6H Prescribed by: ARTI COSTA on 11/22/20 0942 Lisinopril (Lisinopril) 10 Mg Tablet, 10 MG PO DAILY, (Reported) Entered as Reported by: MIKAEL THOMPSON on 06/30/20 104 Loratadine (Loratadine) 10 Mg Tablet, 10 MG PO DAILY, (Reported) Entered as Reported by: MIKAEL THOMPSON on 06/30/20 104 Metoprolol Tartrate (Metoprolol Tartrate) 50 Mg Tablet, 50 MG PO BID, (Reported) Entered as Reported by: MIKAEL THOMPSON on 06/30/20 104 Oxycodone HCl/Acetaminophen (Percocet 5-325 mg Tablet) 1 Each Tablet, 1 TAB PO Q6H Prescribed by: EVY HOWARD MD on 06/07/222038 Pnv Cmb#21/Iron/Folic Acid ( Complete Caplet) 1 Each Tablet, 1 EACH PO DAILY, (Reported) Entered as Reported by: NEGAR MORRIS on 11/22/20 0933 Simethicone (Simethicone) 80 Mg Tab.chew, 40 MG PO TID PRN for INDIGESTION 2ND LINE Prescribed by: ARTI COSTA on 11/22/20 0942 Temazepam (Temazepam) 7.5 Mg Capsule, 7.5 MG PO HS, (Reported) Entered as Reported by: MIKAEL THOMPSON on 06/30/20 104 Review of Systems Constitutional: No chills, No fever EENTM: no symptoms reported Respiratory: no symptoms reported Cardiovascular: no symptoms reported Gastrointestinal: no symptoms reported Genitourinary: no symptoms reported Musculoskeletal: see HPI Skin: see HPI Psychiatric/Neurological: No Symptoms Reported Past Iexlooc-Ndjhgr-Gfxhdi Hx Immunizations Up To Date Tetanus Booster (TDap): Unknown Seasonal Allergies Seasonal Allergies: No Past Medical History Appendectomy, Section Respiratory: No Currently Using CPAP: No Currently Using BIPAP: No Cardiac: No Neurological: No Genitourinary: No Gastrointestinal: No Musculoskeletal: No Endocrine: No HEENT: No Cancer: No Psychosocial: No Integumentary: No Blood Disorders: No Physical Exam Vital Signs Vital Signs - First Documented 09/20/22 13:53 Temp 36.1 Pulse 95 Resp 14 B/P (MAP) 165/88 (113) Pulse Ox 99 O2 Delivery Room Air Capillary Refill : Height, Weight, BMI Height: 5'9.00" Weight: 225lbs. oz. 102.742799bp; 37.00 BMI Method:Stated General Appearance: WD/WN, no apparent distress Cardiovascular: normal peripheral pulses, regular rate, rhythm, no edema Respiratory: lungs clear, normal breath sounds Gastrointestinal: non tender Legs: right leg soft tissue tenderness Knees: bilateral knee non-tender, bilateral knee normal inspection, bilateral knee normal range of motion Ankles: right ankle soft tissue tenderness Feet: right foot soft tissue tenderness (Right heel), right foot swelling (Mild right heel) Progress/Results/Core Measures Results/Orders My Orders Orders - BOSS,SERA L DO Heel 2 View Right (09/20/22 14:00) Tibia Fibula 2 View Right (09/20/22 14:00) Vital Signs/I&O 09/20/22 09/20/22 13:53 15:00 Temp 36.1 36.1 Pulse 95 95 Resp 14 14 B/P (MAP) 165/88 (113) 165/88 Pulse Ox 99 99 O2 Delivery Room Air Room Air Progress Progress Note : Progress Note Patient's x-ray shows no significant findings. Patient likely with posterior lower leg clot/heel contusion. Patient stable and discharged home. Diagnostic Imaging Diagonstic Imaging: Xray Comments Date of Exam:09/20/22 TIBIA FIBULA 2 VIEW RIGHT TIBIA FIBULA 2 VIEW RIGHT INDICATION: Right lower leg trauma COMPARISON: Ankle radiographs performed concurrently TECHNIQUE: 2 views of right tibia and fibula FINDINGS: No acute healing fracture. No periosteal reaction or concerning focal osseous lesion. Moderate-sized dorsal calcaneal spur. IMPRESSION: No acute fracture in the right tibia or fibula. Date of Exam:09/20/22 HEEL 2 VIEW RIGHT INDICATION: Acute heel injury with pain. AP and there is no evidence of lytic or sclerotic lesion. IMPRESSION: No acute abnormality. Departure Impression Primary Impression: Contusion of right lower leg, initial encounter Additional Impression: Contusion of right foot or heel Disposition: 01 HOME, SELF-CARE Condition: Stable Departure-Patient Inst. Referrals: CAMERON MCGRATH APRN (PCP) Primary Care Physician [facility] (Family) Primary Care Physician Patient Instructions: Minor Contusion ED Add. Discharge Instructions: 4% topical lidocaine with menthol cream or gel. Use as directed on pack Ice to the affected area 3-4 times daily as needed for pain Follow-up with your primary care provider in 1 week if symptoms have not improved All discharge instructions reviewed with patient and/or family. Voiced understanding. SERA BOSS DO Sep 20, 2022 13:55
--- NOTE | 2022-09-20 14:35 | Diagnostic Imaging Report ---
INDICATION: Acute heel injury with pain. AP and there is no evidence of lytic or sclerotic lesion. IMPRESSION: No acute abnormality. Dictated by: Dictated on workstation # [id number]
--- NOTE | 2022-09-20 14:54 | Diagnostic Imaging Report ---
TIBIA FIBULA 2 VIEW RIGHT INDICATION: Right lower leg trauma COMPARISON: Ankle radiographs performed concurrently TECHNIQUE: 2 views of right tibia and fibula FINDINGS: No acute healing fracture. No periosteal reaction or concerning focal osseous lesion. Moderate-sized dorsal calcaneal spur. IMPRESSION: No acute fracture in the right tibia or fibula. Dictated by: Dictated on workstation # [id number]
[2022-09-20 15:00] VITALS: BP 165/88
== END 2022-09-20 15:00 | disposition home or self-care (01) ==
LOC: EDUNIT# 13:40 → ER FS 13:41
DX: S90.31XA Contusion of right foot, initial encounter (principal); W20.8XXA Other cause of strike by thrown, projected or falling object, initial encounter
CPT/HCPCS: 73590; 73650

== ENCOUNTER 2023-05-01 17:08 | Emergency (ER) | payer OTHER ==
--- NOTE | 2023-05-01 17:21 | ED Chest Pain ---
General Stated Complaint: CHEST PAIN Source: patient, EMS Exam Limitations: no limitations History of Present Illness Date Seen by Provider: May 01, 2023 Time Seen by Provider: 17:13 Initial Comments 47-year-old female presents to the emergency department via EMS for chest pain. Symptoms started about an hour prior to arrival. She describes sharp stabbing pain in right anterior chest, under her right breast and into her right shoulder blade region. It is exquisitely tender to touch in these areas, even with light touch. She has never had similar symptoms in the past. She did not try anything for her symptoms. She denies any fevers chills cough chest pain. She has had a recent sinus infection for which she recently started taking Mucinex. She has no cardiac history. All other systems reviewed and negative except documented per HPI. Voice recognition software was used to help create this chart Allergies and Home Medications Allergies Coded Allergies: Penicillins (Verified Allergy, Unknown, 03/27/19) amoxicillin (Verified Allergy, Unknown, 11/22/20) fish oil (Verified Allergy, Unknown, 06/30/20) fluticasone (Verified Allergy, Unknown, 03/27/19) mometasone furoate (Verified Allergy, Unknown, 06/30/20) Uncoded Allergies: IV CONTRAST (Allergy, Unknown, 06/30/20) SEAFOOD (Allergy, Unknown, 06/30/20) Patient Home Medication List Home Medication List Reviewed: Yes Aspirin (Aspirin EC) 81 Mg Tablet.dr, 81 MG PO DAILY, (Reported) Entered as Reported by: MIKAEL THOMPSON on 06/30/20 1041 Calcium Carbonate (Calcium) Unknown Strength Tab.chew, Unknown Dose PO DAILY, (Reported) Entered as Reported by: NEGAR MORRIS on 11/22/20 0933 Docusate Sodium (Dok) 100 Mg Capsule, 100 MG PO BID PRN for CONSTIPATION-1ST LINE Prescribed by: ARTI COSTA on 11/22/20 0942 Duloxetine HCl (Cymbalta) 60 Mg Capsule., 60 MG PO DAILY, (Reported) Entered as Reported by: MIKAEL THOMPSON on 06/30/20 1041 Hydrochlorothiazide (Hydrochlorothiazide) 25 Mg Tablet, 25 MG PO DAILY, (Reported) Entered as Reported by: MIKAEL THOMPSON on 06/30/20 1041 Hydrocodone Bit/Acetaminophen (HYDROcodone/APAP 7.5/325 TAB) 1 Ea Tablet, 2 EA PO Q6H PRN for Pain-See Instructions Prescribed by: ARTI COSTA on 11/22/20 09 Ibuprofen (Ibu) 600 Mg Tablet, 600 MG PO Q6H Prescribed by: ARTI COSTA on 11/22/20 09 Lisinopril (Lisinopril) 10 Mg Tablet, 10 MG PO DAILY, (Reported) Entered as Reported by: MIKAEL THOMPSON on 06/30/20 104 Loratadine (Loratadine) 10 Mg Tablet, 10 MG PO DAILY, (Reported) Entered as Reported by: MIKAEL THOMPSON on 06/30/20 104 Metoprolol Tartrate (Metoprolol Tartrate) 50 Mg Tablet, 50 MG PO BID, (Reported) Entered as Reported by: MIKAEL THOMPSON on 06/30/201040 Oxycodone HCl/Acetaminophen (Percocet 5-325 mg Tablet) 1 Each Tablet, 1 TAB PO Q6H Prescribed by: EVY HOWARD MD on 06/07/222038 Pnv Cmb#21/Iron/Folic Acid ( Complete Caplet) 1 Each Tablet, 1 EACH PO DAILY, (Reported) Entered as Reported by: NEGAR MORRIS on 11/22/20 0933 Simethicone (Simethicone) 80 Mg Tab.chew, 40 MG PO TID PRN for INDIGESTION 2ND LINE Prescribed by: ARTI COSTA on 11/22/20 0942 Temazepam (Temazepam) 7.5 Mg Capsule, 7.5 MG PO HS, (Reported) Entered as Reported by: MIKAEL THOMPSON on 06/30/20 104 Review of Systems Review of Systems Constitutional: see HPI Past Qpsszyh-Piucxd-Iqrzzq Hx Patient Social History Tobacco Use?: Yes Use of E-Cig and/or Vaping dev: No Substance use?: No Alcohol Use?: No Immunizations Up To Date Tetanus Booster (TDap): Unknown First/Initial COVID19 Vaccinat: YES Seasonal Allergies Seasonal Allergies: No Past Medical History Surgery/Hospitalization HX: Appendectomy; ; Appendectomy, Section Respiratory: No Currently Using CPAP: No Currently Using BIPAP: No Cardiac: No Neurological: No Genitourinary: No Gastrointestinal: No Musculoskeletal: No Endocrine: No HEENT: No Cancer: No Psychosocial: No Integumentary: No Blood Disorders: No Physical Exam Vital Signs Vital Signs - First Documented 05/01/23 17:08 Temp 38.0 Pulse 87 Resp 18 B/P (MAP) 160/90 (113) Pulse Ox 97 O2 Delivery Room Air Capillary Refill : Height, Weight, BMI Height: 5'9.00" Weight: 225lbs. oz. 102.874646rh; 41.00 BMI Method:Stated General Appearance: No Apparent Distress, WD/WN HEENT: Normal ENT Inspection, Pharynx Normal Neck: Full Range of Motion, Normal Inspection, Non Tender, Supple Respiratory: Lungs Clear, Normal Breath Sounds, No Accessory Muscle Use, No Respiratory Distress, Other (Significant tenderness to palpation even superficial touch of the right anterior chest wall, right parascapular region. There is no skin rashes or changes. No crepitus.) Cardiovascular: Regular Rate, Rhythm, No Murmur, Normal Peripheral Pulses Gastrointestinal: Normal Bowel Sounds, No Organomegaly, No Pulsatile Mass, Non Tender, Soft Extremity: Normal Capillary Refill, Normal Inspection, Normal Range of Motion, Non Tender, No Calf Tenderness Neurologic/Psychiatric: Alert, Oriented x3, No Motor/Sensory Deficits Skin: Normal Color, Warm/Dry Progress/Results/Core Measures Results/Orders Lab Results Laboratory Tests Test 05/01/23 17:15 Range/Units White Blood Count 13.9 H 4.3-11.0 10^3/uL Red Blood Count 4.11 3.80-5.11 10^6/uL Hemoglobin 13.4 11.5-16.0 g/dL Hematocrit 39 35-52 % Mean Corpuscular Volume 95 80-99 fL Mean Corpuscular Hemoglobin 33 25-34 pg Mean Corpuscular Hemoglobin Concent 34 32-36 g/dL Red Cell Distribution Width 12.2 10.0-14.5 % Platelet Count 246 130-400 10^3/uL Mean Platelet Volume 10.6 9.0-12.2 fL Immature Granulocyte % (Auto) 0 % Neutrophils (%) (Auto) 59 42-75 % Lymphocytes (%) (Auto) 29 12-44 % Monocytes (%) (Auto) 10 0-12 % Eosinophils (%) (Auto) 2 0-10 % Basophils (%) (Auto) 1 0-10 % Neutrophils # (Auto) 8.1 H 1.8-7.8 10^3/uL Lymphocytes # (Auto) 4.0 1.0-4.0 10^3/uL Monocytes # (Auto) 1.4 H 0.0-1.0 10^3/uL Eosinophils # (Auto) 0.2 0.0-0.3 10^3/uL Basophils # (Auto) 0.1 0.0-0.1 10^3/uL Immature Granulocyte # (Auto) 0.1 0.0-0.1 10^3/uL Percent Immature Platelet Fraction 5.3 0.0-7.6 % Sodium Level 135 135-145 MMOL/L Potassium Level 4.0 3.6-5.0 MMOL/L Chloride Level 100 98-107 MMOL/L Carbon Dioxide Level 23 21-32 MMOL/L Anion Gap 12 5-14 MMOL/L Blood Urea Nitrogen 4 L 7-18 MG/DL Creatinine 0.70 0.60-1.30 MG/DL Estimat Glomerular Filtration Rate 109 BUN/Creatinine Ratio 6 Glucose Level 122 H 70-105 MG/DL Calcium Level 8.4 L 8.5-10.1 MG/DL Troponin I < 0.30 <0.30 NG/ML My Orders Orders - ASHLEYSANTIAGO DO Cbc With Automated Diff (05/01/23 17:17) Basic Metabolic Panel (05/01/23 17:17) Troponin I Fs (05/01/23 17:17) Ekg Tracing (05/01/23 17:17) Chest 1 View Ap/Pa Only (05/01/23 17:17) Ketorolac Injection (Toradol Injection) (05/01/23 17:30) Ceftriaxone Iv/Im (Rocephin Iv/Im) (05/01/23 18:00) Medications Given in ED Current Medications Medications Dose Ordered Sig/Clark Route Start Time Stop Time Status Last Admin Dose Admin Ketorolac Tromethamine 15 mg ONCE ONCE IVP 05/01/23 17:30 05/01/23 17:31 DC 05/01/23 17:22 15 MG Vital Signs/I&O 05/01/23 17:08 Temp 38.0 Pulse 87 Resp 18 B/P (MAP) 160/90 (113) Pulse Ox 97 O2 Delivery Room Air Departure Communication (Admissions) Patient is hemodynamically stable. She is not tachycardic, minimally tachypneic and has normal oxygen saturation on room air. Right chest wall pain. Unclear significance however that she have right lower lobe pneumonia based on chest x- ray. Again she is hemodynamically stable not requiring any supplemental oxygen. I think she is likely stable for discharge home and close follow-up. There is no evidence for ACS. Troponin is negative and EKG is nonischemic. Impression Primary Impression: CAP (community acquired pneumonia) Qualified Codes: J18.9 - Pneumonia, unspecified organism Disposition: HOME, SELF-CARE Condition: Stable Departure-Patient Inst. Referrals: CAMERON MCGRATH APRN (PCP) Primary Care Physician [facility] (Family) Primary Care Physician Patient Instructions: Community-Acquired Pneumonia, Adult (DC) Add. Discharge Instructions: You are seen in the emergency department today for right-sided chest pain. You appear to have pneumonia on that side. You will need to stay off work until you are fever free for 24 hours. You are given the first dose of antibiotics here. Please take the antibiotics as prescribed daily until they are gone. Do not stop taking them simply because you start feeling better. Return to the emergency department for any severe shortness of breath or if your symptoms change in any way concerning to you. Scripts Levofloxacin (Levofloxacin) 500 Mg Tablet 500 MG PO DAILY for 7 Days, #7 TAB Prov: SANTIAGO RAMIREZ DO 05/01/23 SANTIAGO RAMIREZ DO May 01, 2023 17:21
[2023-05-01] MEDS ORDERED: KETOROLAC 15 MG/ML VIAL IVP ONE (17:30)
[2023-05-01 17:34] LABS: BASOPHILS # (AUTO) 0.1 10^3/uL (0.0-0.1); BASOPHILS % (AUTO) 1 % (0-10); EOSINOPHILS # (AUTO) 0.2 10^3/uL (0.0-0.3); EOSINOPHILS % (AUTO) 2 % (0-10); HEMATOCRIT 39 % (35-52); HEMOGLOBIN 13.4 g/dL (11.5-16.0); LYMPHOCYTES % (AUTO) 29 % (12-44); MEAN CORPUSCULAR HEMOGLOBIN 33 pg (25-34); MEAN CORPUSCULAR HGB CONC 34 g/dL (32-36); MEAN CORPUSCULAR VOLUME 95 fL (80-99); MEAN PLATELET VOLUME 10.6 fL (9.0-12.2); MONOCYTES # (AUTO) 1.4 10^3/uL (0.0-1.0); MONOCYTES % (AUTO) 10 % (0-12); NEUTROPHILS # (AUTO) 8.1 10^3/uL (1.8-7.8); NEUTROPHILS % (AUTO) 59 % (42-75); PLATELET COUNT 246 10^3/uL (130-400); WHITE BLOOD COUNT 13.9 10^3/uL (4.3-11.0)
[2023-05-01 17:37] LABS: CARBON DIOXIDE 23 MMOL/L (21-32); CHLORIDE 100 MMOL/L (98-107); SODIUM 135 MMOL/L (135-145)
--- NOTE | 2023-05-01 17:38 | Diagnostic Imaging Report ---
INDICATION: Chest pain. TIME OF EXAM: 05:25 p.m. COMPARISON: Correlation is made with prior chest from 06/30/2020. FINDINGS: The heart appears mildly enlarged. There is some patchy airspace infiltrate in the right upper lobe, consistent with pneumonia. Left lung is clear. There is also some minimal patchy right basilar infiltrate. No effusion is seen. There is no pneumothorax. IMPRESSION: Patchy infiltrates in the right upper and right lower lobe, suggestive of pneumonia. Dictated by: Dictated on workstation # [id number]
[2023-05-01 17:41] LABS: BUN/CREATININE RATIO 6; GFR ESTIMATED 109; GLUCOSE 122 MG/DL (70-105)
[2023-05-01 17:42] LABS: CALCIUM 8.4 MG/DL (8.5-10.1)
[2023-05-01] MEDS ORDERED: cefTRIAXone IV/IM 1,000 MG in NS (IVPB) 50 ML IV ONE (18:00)
[2023-05-01] MEDS ORDERED: LEVO-55 PO (18:03)
[2023-05-01 18:11] VITALS: BP 151/81
== END 2023-05-01 18:12 | disposition home or self-care (01) ==
LOC: EDUNIT# 17:08 → ER FS 17:10
DX: J18.9 Pneumonia, unspecified organism (principal); Z88.0 Allergy status to penicillin; Z28.311 Partially vaccinated for COVID-19
CPT/HCPCS: 36415; 71045; 80048; 84484; 85025; 93005

== ENCOUNTER 2023-06-01 18:46 | Emergency (ER) | payer OTHER ==
[~2023-06-01] VITALS: Ht 172 cm; Wt 130.0 kg
[~2023-06-01 18:46] MED LIST changes: +LEVO-55 PO
[2023-06-01 19:00] VITALS: BP 177/86
--- NOTE | 2023-06-01 19:18 | ED General ---
General Chief Complaint: Abdominal/GI Problems Stated Complaint: D/V/DEHYDRATION Nursing Triage Note: Patient ambulatory to [facility] via POV w c/o abdominal pain x 1 wk. vomiting/diahrrea. last took motrin at 1800 History of Present Illness Date Seen by Provider: Jun 01, 2023 Time Seen by Provider: 19:03 Initial Comments 47-year-old female with PMH of DM2/HTN/colon surgery/obesity, is here with complaints of abdominal cramping, nausea and vomiting, diarrhea which has been going on for the past week. The retching started today. Patient is still eating but has diarrhea right after she eats. Patient had a [employer] sandwich for lunch today. No known sick contacts. Denies chest pain, palpitations, shortness of breath. Allergies and Home Medications Allergies Coded Allergies: Penicillins (Verified Allergy, Unknown, 03/27/19) amoxicillin (Verified Allergy, Unknown, 11/22/20) fish oil (Verified Allergy, Unknown, 06/30/20) fluticasone (Verified Allergy, Unknown, 03/27/19) mometasone furoate (Verified Allergy, Unknown, 06/30/20) Uncoded Allergies: IV CONTRAST (Allergy, Unknown, 06/30/20) SEAFOOD (Allergy, Unknown, 06/30/20) Patient Home Medication List Home Medication List Reviewed: Yes Aspirin (Aspirin EC) 81 Mg Tablet., 81 MG PO DAILY, (Reported) Entered as Reported by: MIKAEL THOMPSON on 06/30/20 1041 Calcium Carbonate (Calcium) Unknown Strength Tab.chew, Unknown Dose PO DAILY, (Reported) Entered as Reported by: NEGAR MORRIS on 11/22/20 0933 Docusate Sodium (Dok) 100 Mg Capsule, 100 MG PO BID PRN for CONSTIPATION-1ST LINE Prescribed by: ARTI COSTA on 11/22/20 0942 Duloxetine HCl (Cymbalta) 60 Mg Capsule., 60 MG PO DAILY, (Reported) Entered as Reported by: MIKAEL THOMPSON on 06/30/20 1041 Hydrochlorothiazide (Hydrochlorothiazide) 25 Mg Tablet, 25 MG PO DAILY, (Reported) Entered as Reported by: MIKAEL THOMPSON on 06/30/20 1041 Hydrocodone Bit/Acetaminophen (HYDROcodone/APAP 7.5/325 TAB) 1 Ea Tablet, 2 EA PO Q6H PRN for Pain-See Instructions Prescribed by: ARTI COSTA on 11/22/20 09 Ibuprofen (Ibu) 600 Mg Tablet, 600 MG PO Q6H Prescribed by: ARTI COSTA on 11/22/20 09 Levofloxacin (Levofloxacin) 500 Mg Tablet, 500 MG PO DAILY Prescribed by: SANTIAGO RAMIREZ MD on 05/01/231802 Lisinopril (Lisinopril) 10 Mg Tablet, 10 MG PO DAILY, (Reported) Entered as Reported by: MIKAEL THOMPSON on 06/30/20 104 Loratadine (Loratadine) 10 Mg Tablet, 10 MG PO DAILY, (Reported) Entered as Reported by: MIKAEL THOMPSON on 06/30/20 104 Metoprolol Tartrate (Metoprolol Tartrate) 50 Mg Tablet, 50 MG PO BID, (Reported) Entered as Reported by: MIKAEL THOMPSON on 06/30/20 104 Oxycodone HCl/Acetaminophen (Percocet 5-325 mg Tablet) 1 Each Tablet, 1 TAB PO Q6H Prescribed by: EVY HOWARD MD on 06/07/222038 Pnv Cmb#21/Iron/Folic Acid ( Complete Caplet) 1 Each Tablet, 1 EACH PO DAILY, (Reported) Entered as Reported by: NEGAR MORRIS on 11/22/20 09 Simethicone (Simethicone) 80 Mg Tab.chew, 40 MG PO TID PRN for INDIGESTION 2ND LINE Prescribed by: ARTI COSTA on 11/22/20 09 Temazepam (Temazepam) 7.5 Mg Capsule, 7.5 MG PO HS, (Reported) Entered as Reported by: MIKAEL THOMPSON on 06/30/20 104 Review of Systems Review of Systems Constitutional: no symptoms reported EENTM: no symptoms reported Respiratory: no symptoms reported Cardiovascular: no symptoms reported Gastrointestinal: abdominal pain, diarrhea, nausea, vomiting Genitourinary: no symptoms reported Musculoskeletal: no symptoms reported Skin: no symptoms reported Psychiatric/Neurological: No Symptoms Reported Hematologic/Lymphatic: No Symptoms Reported Past [id number] Hx Patient Social History Tobacco Use?: Yes Tobacco type used: Cigarettes Smoking Status: Current Everyday Smoker Substance use?: No Alcohol Use?: No Immunizations Up To Date Tetanus Booster (TDap): Unknown First/Initial COVID19 Vaccinat: unk Second COVID19 Vaccination Nick: YES Third COVID19 Vaccination Date: YES COVID19 Vaccine [employer]: unk Seasonal Allergies Seasonal Allergies: No Past Medical History Surgery/Hospitalization HX: Appendectomy; ; HTN; DM; Anxiety; Depression Appendectomy, Section Respiratory: No Currently Using CPAP: No Currently Using BIPAP: No Cardiac: No Neurological: No Genitourinary: No Gastrointestinal: No Musculoskeletal: No Endocrine: No HEENT: No Cancer: No Psychosocial: No Integumentary: No Blood Disorders: No Physical Exam Vital Signs Vital Signs - First Documented 06/01/23 19:00 Temp 38.1 Pulse 90 Resp 16 B/P (MAP) 177/86 (116) Pulse Ox 98 O2 Delivery Room Air Capillary Refill : Less Than 3 Seconds Height, Weight, BMI Height: 5'9.00" Weight: 225lbs. oz. 102.065886zj; 43.00 BMI Method:Stated General Appearance: No Apparent Distress, WD/WN, Obese HEENT: PERRL/EOMI, Normal ENT Inspection, Pharynx Normal Neck: Full Range of Motion, Normal Inspection, Non Tender Respiratory: Chest Non Tender, Lungs Clear, Normal Breath Sounds Cardiovascular: Regular Rate, Rhythm, No Edema Gastrointestinal: Normal Bowel Sounds, No Organomegaly, Non Tender (Nontender on palpation but patient states that she has lower pelvic cramping), Soft Back: Normal Inspection, No CVA Tenderness Neurologic/Psychiatric: Alert, Oriented x3, Normal Mood/Affect Skin: Normal Color Progress/Results/Core Measures Suspected Sepsis SIRS Temperature: Pulse: 90 Respiratory Rate: 16 Laboratory Tests 06/01/23 19:00: White Blood Count 10.6 Blood Pressure 177 /86 Mean: 116 Laboratory Tests 06/01/23 19:00: Creatinine 0.79, Platelet Count 209, Total Bilirubin 0.3 Results/Orders Lab Results Laboratory Tests Test 06/01/23 19:00 Range/Units White Blood Count 10.6 4.3-11.0 10^3/uL Red Blood Count 4.33 3.80-5.11 10^6/uL Hemoglobin 14.1 11.5-16.0 g/dL Hematocrit 40 35-52 % Mean Corpuscular Volume 92 80-99 fL Mean Corpuscular Hemoglobin 33 25-34 pg Mean Corpuscular Hemoglobin Concent 35 32-36 g/dL Red Cell Distribution Width 12.4 10.0-14.5 % Platelet Count 209 130-400 10^3/uL Mean Platelet Volume 10.6 9.0-12.2 fL Immature Granulocyte % (Auto) 0 % Neutrophils (%) (Auto) 74 42-75 % Lymphocytes (%) (Auto) 17 12-44 % Monocytes (%) (Auto) 7 0-12 % Eosinophils (%) (Auto) 0 0-10 % Basophils (%) (Auto) 1 0-10 % Neutrophils # (Auto) 7.9 H 1.8-7.8 10^3/uL Lymphocytes # (Auto) 1.8 1.0-4.0 10^3/uL Monocytes # (Auto) 0.8 0.0-1.0 10^3/uL Eosinophils # (Auto) 0.0 0.0-0.3 10^3/uL Basophils # (Auto) 0.1 0.0-0.1 10^3/uL Immature Granulocyte # (Auto) 0.0 0.0-0.1 10^3/uL Urine Color YELLOW Urine Clarity CLEAR Urine pH 6.0 5-9 Urine Specific Maurice 1.010 L 1.016-1.022 Urine Protein NEGATIVE NEGATIVE Urine Glucose (UA) NEGATIVE NEGATIVE Urine Ketones NEGATIVE NEGATIVE Urine Nitrite NEGATIVE NEGATIVE Urine Bilirubin NEGATIVE NEGATIVE Urine Urobilinogen 0.2 < = 1.0 MG/DL Urine Leukocyte Esterase 1+ H NEGATIVE Urine RBC (Auto) TRACE-I H NEGATIVE Urine RBC NONE /HPF Urine WBC NONE /HPF Urine Squamous Epithelial Cells 2-5 /HPF Urine Crystals NONE /LPF Urine Bacteria MODERATE H /HPF Urine Casts NONE /LPF Urine Mucus NEGATIVE /LPF Urine Culture Indicated YES Sodium Level 135 135-145 MMOL/L Potassium Level 3.6 3.6-5.0 MMOL/L Chloride Level 99 98-107 MMOL/L Carbon Dioxide Level 23 21-32 MMOL/L Anion Gap 13 5-14 MMOL/L Blood Urea Nitrogen 10 7-18 MG/DL Creatinine 0.79 0.60-1.30 MG/DL Estimat Glomerular Filtration Rate 94 BUN/Creatinine Ratio 13 Glucose Level 170 H 70-105 MG/DL Calcium Level 8.6 8.5-10.1 MG/DL Corrected Calcium 8.7 8.5-10.1 MG/DL Magnesium Level 2.1 1.6-2.4 MG/DL Total Bilirubin 0.3 0.1-1.0 MG/DL Aspartate Amino Transf (AST/SGOT) 21 5-34 U/L Alanine Aminotransferase (ALT/SGPT) 26 0-55 U/L Alkaline Phosphatase 51 40-136 U/L Total Protein 7.3 6.4-8.2 GM/DL Albumin 3.9 3.2-4.5 GM/DL Lipase 43 8-78 U/L Urine Opiates Screen NEGATIVE NEGATIVE Urine Oxycodone Screen NEGATIVE NEGATIVE Urine Methadone Screen NEGATIVE NEGATIVE Urine Propoxyphene Screen NEGATIVE NEGATIVE Urine Barbiturates Screen NEGATIVE NEGATIVE Ur Tricyclic Antidepressants Screen POSITIVE H NEGATIVE Urine Phencyclidine Screen NEGATIVE NEGATIVE Urine Amphetamines Screen NEGATIVE NEGATIVE Urine Methamphetamines Screen NEGATIVE NEGATIVE Urine Benzodiazepines Screen NEGATIVE NEGATIVE Urine Cocaine Screen NEGATIVE NEGATIVE Urine Cannabinoids Screen NEGATIVE NEGATIVE Influenza Type A (RT-PCR) Not Detected Not Detecte Influenza Type B (RT-PCR) Not Detected Not Detecte SARS-CoV-2 RNA (RT-PCR) Not Detected Not Detecte My Orders Orders - EVY HOWRAD MD Drug Screen Stat (Urine) (06/01/23 19:18) Ua Culture If Indicated (06/01/23 19:18) Covid 19 Inhouse Test (06/01/23 19:19) Influenza A And B By Pcr (06/01/23 19:19) Urine Culture (06/01/23 19:00) Ondansetron Injection (Zofran Injectio (06/01/23 19:30) Cbc With Automated Diff (06/01/23 19:30) Comprehensive Metabolic Panel (06/01/23 19:30) Lipase (06/01/23 19:30) Magnesium (06/01/23 19:30) Ed Iv/Invasive Line Start (06/01/23 19:31) Ns Iv 1000 Ml (Sodium Chloride 0.9%) (06/01/23 19:45) Vital Signs/I&O 06/01/23 19:00 Temp 38.1 Pulse 90 Resp 16 B/P (MAP) 177/86 (116) Pulse Ox 98 O2 Delivery Room Air Capillary Refill : Less Than 3 Seconds Blood Pressure Mean: 116 Progress Note : Progress Note 1. VIRAL GASTROENTERITIS/ UTI: - COVID test/ Flu test: negative - CBC/ CMP: unremarkable - lipase: negative - Zofran 4mg iv STAT - Prescription given for Zofran ODT to be taken as needed for nausea/ vomiting, Nitrofurantoin 100mg bid for 7 days - Adequate hydration advised, at least 8 glasses water/ day - [place] diet advised - Follow up with PCP in 7 to 10 days -The patient was seen in the ED, and treated appropriately to presentation at a specific point in time. Patient is informed that there is a possibility that disease and illness can evolve and change in acuity rapidly or slowly after sarmad ent is discharged from the ER. Precautionary advice given to the patient for immediate return to ER if symptoms worsen or do not resolve, and to seek emergency care sooner rather than later. Pt also advised on the importance of PCP follow up and compliance with management and follow up plan with PCP and/or specialist, as this is part of the management plan. Pt verbally expressed un derstanding. Departure Impression Primary Impression: Viral gastroenteritis Additional Impression: UTI (urinary tract infection) Disposition: 01 HOME, SELF-CARE Condition: Stable Departure-Patient Inst. Referrals: CAMERON MCGRATH APRN (PCP) Primary Care Physician [facility] (Family) Primary Care Physician Patient Instructions: Viral Gastroenteritis, Adult (DC), Urinary tract infections in adults Add. Discharge Instructions: - Prescription given for Zofran ODT to be taken as needed for nausea/ vomiting, Nitrofurantoin 100mg bid for 7 days - Adequate hydration advised, at least 8 glasses water/ day - [place] diet advised - Follow up with PCP in 7 to 10 days All discharge instructions reviewed with patient and/or family. Voiced understanding. Scripts Nitrofurantoin Macrocrystal (Nitrofurantoin) 100 Mg Capsule 100 MG PO Q12H for 7 Days, #14 CAP Prov: EVY HOWARD MD 06/01/23 Ondansetron (Ondansetron Odt) 4 Mg Tab.rapdis 4 MG SL Q6H PRN for NAUSEA/VOMITING for 3 Days, #12 TAB Prov: EVY HOWARD MD 06/01/23 EVY HOWARD MD Jun 01, 2023 19:18
[2023-06-01 19:22] LABS: AMPHETAMINE SCREEN, URINE NEGATIVE (NEGATIVE); BARBITURATE SCREEN URINE NEGATIVE (NEGATIVE); BENZODIAZEPINES SCREEN URINE NEGATIVE (NEGATIVE); BILIRUBIN,URINE NEGATIVE (NEGATIVE); CANNABINOID SCREEN, URINE NEGATIVE (NEGATIVE); CLARITY,URINE CLEAR; COCAINE SCREEN URINE NEGATIVE (NEGATIVE); COLOR,URINE YELLOW; GLUCOSE, URINE (UA) NEGATIVE (NEGATIVE); KETONES,URINE NEGATIVE (NEGATIVE); LEUKOCYTE ESTERASE ,URINE 1+ (NEGATIVE); METHADONE STAT NEGATIVE (NEGATIVE); NITRITE,URINE NEGATIVE (NEGATIVE); OPIATE SCREEN URINE NEGATIVE (NEGATIVE); OXYCODONE STAT NEGATIVE (NEGATIVE); PROPOXYPHENE STAT NEGATIVE (NEGATIVE); PROTEIN,URINE NEGATIVE (NEGATIVE); TRICYCLIC ANTIDEPRESSANTS SCRE POSITIVE (NEGATIVE)
[2023-06-01 19:25] LABS: BACTERIA,URINE MODERATE /HPF
[2023-06-01] MEDS ORDERED: ONDANSETRON 4 MG/2 ML (SDV) Z0FRAN IVP ONE (19:30)
[2023-06-01 19:34] LABS: BASOPHILS # (AUTO) 0.1 10^3/uL (0.0-0.1); BASOPHILS % (AUTO) 1 % (0-10); EOSINOPHILS % (AUTO) 0 % (0-10); HEMATOCRIT 40 % (35-52); HEMOGLOBIN 14.1 g/dL (11.5-16.0); LYMPHOCYTES # (AUTO) 1.8 10^3/uL (1.0-4.0); LYMPHOCYTES % (AUTO) 17 % (12-44); MEAN CORPUSCULAR HEMOGLOBIN 33 pg (25-34); MEAN CORPUSCULAR HGB CONC 35 g/dL (32-36); MEAN CORPUSCULAR VOLUME 92 fL (80-99); MEAN PLATELET VOLUME 10.6 fL (9.0-12.2); MONOCYTES # (AUTO) 0.8 10^3/uL (0.0-1.0); MONOCYTES % (AUTO) 7 % (0-12); NEUTROPHILS # (AUTO) 7.9 10^3/uL (1.8-7.8); NEUTROPHILS % (AUTO) 74 % (42-75); PLATELET COUNT 209 10^3/uL (130-400); WHITE BLOOD COUNT 10.6 10^3/uL (4.3-11.0)
[2023-06-01 19:37] LABS: ALBUMIN 3.9 GM/DL (3.2-4.5); BILIRUBIN,TOTAL 0.3 MG/DL (0.1-1.0); CALCIUM 8.6 MG/DL (8.5-10.1); CREATININE SERUM 0.79 MG/DL (0.60-1.30); MAGNESIUM 2.1 MG/DL (1.6-2.4); POTASSIUM 3.6 MMOL/L (3.6-5.0); TOTAL PROTEIN 7.3 GM/DL (6.4-8.2)
[2023-06-01] MEDS ORDERED: NS IV 1000 ML 1,000 ML IV SCH (19:45)
[2023-06-01] MEDS ORDERED: NITR100C PO (19:58)
[2023-06-01] MEDS ORDERED: ONDA4TAB11 SL (19:58)
== END 2023-06-01 20:00 | disposition home or self-care (01) ==
LOC: EDUNIT# 18:46 → ER FS 18:48
DX: A08.4 Viral intestinal infection, unspecified (principal); N39.0 Urinary tract infection, site not specified; E66.9 Obesity, unspecified; F17.210 Nicotine dependence, cigarettes, uncomplicated; Z90.49 Acquired absence of other specified parts of digestive tract; Z68.41 Body mass index [BMI] 40.0-44.9, adult; Z88.0 Allergy status to penicillin; Z20.822 Contact with and (suspected) exposure to COVID-19
CPT/HCPCS: 36415; 80053; 80306; 81000; 83690; 83735; 85025; 87088; 87636

== ENCOUNTER 2023-10-03 10:54 | Emergency (ER) | payer SELFPAY ==
[~2023-10-03] VITALS: Ht 168 cm; Wt 123.1 kg
[~2023-10-03 10:54] MED LIST changes: +NITR100C PO; +ONDA4TAB11 SL
[2023-10-03] MEDS ORDERED: ONDANSETRON INJECTION 4 MG/2 ML (SDV) IVP STA (11:08)
[2023-10-03] MEDS ORDERED: KETOROLAC INJ 15 MG/ML VIAL IVP STA (11:08)
--- NOTE | 2023-10-03 11:18 | ED Fall/Injury ---
General Chief Complaint: Trauma-Non Activation Stated Complaint: HEAD/BACK/RT ARM INJ Nursing Triage Note: ARRIVED VIA AMBULATORY WITHOUT DIFFICULTY. STATES SHE WENT TO SET DOWN ON PORCH AND FELL BACKWORDS. [place]. COMPLAINS OF RIGHT ARM, ELBOW,SHOULDER PAIN. COMPLAINS OF LEFT ELBOW, LOWER BACK, AND LEFT SIDED HEAD PAIN. PT STATES SHE IS OUT OF OXYCODONE. Source: patient History of Present Illness Date Seen by Provider: Oct 03, 2023 Time Seen by Provider: 10:59 Initial Comments 48-year-old female presenting by private vehicle from [facility] clinic. She had went to sit down on her porch and fell backwards. She complains of pain to her back of her head, neck, right shoulder blade, lower back, right flank. She normally has Percocet or oxycodone available at home for chronic low back pain but states that she is out of that. She is unsure if she lost consciousness or not. She had gone to [facility] to be seen in the had told her she had to come to the emergency department to be evaluated since she hit her head and was unsure if she had lost consciousness. Occurred: this morning Severity: severe Injuries/Pain Location: head, neck, chest (Right shoulder blade), abdomen (Right flank and hip) Context: slipped Loss of Consciousness: unsure Modifying Factors: Worse With Movement Associated Symptoms (Fall): Abdominal Pain (Right flank pain), Chest Pain (Right posterior shoulder blade pain); No Confusion, No Dizziness; Headache, Lightheadedness, Muscle Spasms; No Nausea/Vomiting; Neck Pain; No Ringing in Ears, No Seizures, No Shortness of Air, No Slurred Speech, No Vision Changes Allergies and Home Medications Allergies Coded Allergies: Penicillins (Verified Allergy, Unknown, 03/27/19) amoxicillin (Verified Allergy, Unknown, 11/22/20) fish oil (Verified Allergy, Unknown, 06/30/20) fluticasone (Verified Allergy, Unknown, 03/27/19) mometasone furoate (Verified Allergy, Unknown, 06/30/20) Uncoded Allergies: IV CONTRAST (Allergy, Unknown, 06/30/20) SEAFOOD (Allergy, Unknown, 06/30/20) Patient Home Medication List Home Medication List Reviewed: Yes Aspirin (Aspirin EC) 81 Mg Tablet.dr, 81 MG PO DAILY, (Reported) Entered as Reported by: MIKAEL THOMPSON on 06/30/201040 Calcium Carbonate (Calcium) Unknown Strength Tab.chew, Unknown Dose PO DAILY, (Reported) Entered as Reported by: NEGAR MORRIS on 11/22/20932 Docusate Sodium (Dok) 100 Mg Capsule, 100 MG PO BID PRN for CONSTIPATION-1ST LINE Prescribed by: ARTI COSTA on 11/22/20941 Duloxetine HCl (Cymbalta) 60 Mg Capsule.dr, 60 MG PO DAILY, (Reported) Entered as Reported by: MIKAEL THOMPSON on 06/30/201040 Hydrochlorothiazide (Hydrochlorothiazide) 25 Mg Tablet, 25 MG PO DAILY, (Reported) Entered as Reported by: MIKAEL THOMPSON on 06/30/201040 Hydrocodone Bit/Acetaminophen (HYDROcodone/APAP 7.5/325 TAB) 1 Ea Tablet, 2 EA PO Q6H PRN for Pain-See Instructions Prescribed by: ARTI COSTA on 11/22/20941 Ibuprofen (Ibu) 600 Mg Tablet, 600 MG PO Q6H Prescribed by: ARTI COSTA on 11/22/20941 Levofloxacin (Levofloxacin) 500 Mg Tablet, 500 MG PO DAILY Prescribed by: SANTIAGO RAMIREZ MD on 05/01/231802 Lisinopril (Lisinopril) 10 Mg Tablet, 10 MG PO DAILY, (Reported) Entered as Reported by: MIKAEL THOMPSON on 06/30/201040 Loratadine (Loratadine) 10 Mg Tablet, 10 MG PO DAILY, (Reported) Entered as Reported by: MIKAEL THOMPSON on 06/30/201040 Metoprolol Tartrate (Metoprolol Tartrate) 50 Mg Tablet, 50 MG PO BID, (Reported) Entered as Reported by: MIKAEL THOMPSON on 06/30/201040 Nitrofurantoin Macrocrystal (Nitrofurantoin) 100 Mg Capsule, 100 MG PO Q12H Prescribed by: EVY HOWARD MD on 06/01/231957 Ondansetron (Ondansetron Odt) 4 Mg Tab.rapdis, 4 MG SL Q6H PRN for NAUSEA/ VOMITING Prescribed by: EVY HOWARD MD on 06/01/231957 Oxycodone HCl/Acetaminophen (Percocet 5-325 mg Tablet) 1 Each Tablet, 1 TAB PO Q6H Prescribed by: EVY HOWARD MD on 06/07/222038 Pnv Cmb#21/Iron/Folic Acid ( Complete Caplet) 1 Each Tablet, 1 EACH PO DAILY, (Reported) Entered as Reported by: NEGAR MORRIS on 11/22/20 0933 Simethicone (Simethicone) 80 Mg Tab.chew, 40 MG PO TID PRN for INDIGESTION 2ND LINE Prescribed by: ARTI COSTA on 11/22/20 0942 Temazepam (Temazepam) 7.5 Mg Capsule, 7.5 MG PO HS, (Reported) Entered as Reported by: MIKAEL THOMPSON on 06/30/20 1041 Review of Systems Review of Systems Constitutional: No chills, No fever Eyes: Denies Blurred Vision, Denies Photophobia Ears, Nose, Mouth, Throat: denies ear pain, denies ear discharge, denies nose pain, denies nose discharge, denies epistaxis Respiratory: No cough, No short of breath Cardiovascular: see HPI Gastrointestinal: see HPI Genitourinary: no symptoms reported Musculoskeletal: see HPI, back pain (Acute on chronic low back pain), neck pain (Right-sided neck muscular pain) Skin: No change in color, No rash Psychiatric/Neurological: Headache Past Rbariiv-Wyqyfe-Ulawsm Hx Patient Social History Tobacco Use?: Yes Smoking Status: Current Everyday Smoker Substance use?: No Alcohol Use?: No Immunizations Up To Date Tetanus Booster (TDap): Unknown First/Initial COVID19 Vaccinat: unk Second COVID19 Vaccination Nick: YES Third COVID19 Vaccination Date: YES Seasonal Allergies Seasonal Allergies: No Past Medical History Surgery/Hospitalization HX: Appendectomy; ; HTN; DM; Anxiety; Depression Appendectomy, Section Respiratory: No Currently Using CPAP: No Currently Using BIPAP: No Cardiac: No Neurological: No Genitourinary: No Gastrointestinal: No Musculoskeletal: No Endocrine: No HEENT: No Cancer: No Psychosocial: No Integumentary: No Blood Disorders: No Physical Exam Vital Signs Vital Signs - First Documented 10/03/23 10/03/23 11:00 14:29 Temp 36.3 Pulse 81 Resp 16 B/P (MAP) 166/76 (106) Pulse Ox 96 O2 Delivery Room Air Capillary Refill : Less Than 3 Seconds Height, Weight, BMI Height: 5'9.00" Weight: 225lbs. oz. 102.037278bm; 43.00 BMI Method:Stated General Appearance: obese, other (Disheveled appearance with poor hygiene) HEENT: PERRL/EOMI, TMs normal, pharynx normal, other (Negative julien sign negative raccoon sign, no CSF otorrhea, no CSF rhinorrhea, no crepitus or step- off on the skull where she is complaining of pain on the occiput) Neck: full range of motion, supple, tender lateral (Right lateral muscle tenderness on the neck) Cardiovascular: normal peripheral pulses, regular rate, rhythm Respiratory: No chest non-tender (Tender to palpation over the right posterior scapula); lungs clear, normal breath sounds, no respiratory distress, no accessory muscle use Gastrointestinal: normal bowel sounds, soft, no pulsatile mass; No distended, No guarding, No rebound; tenderness (Right flank tender to palpation. No bruising or swelling noted) Rectal: deferred Back: muscle spasm, vertebral tenderness (T and L spine tenderness to palpation without step-off or crepitus) Extremities: normal range of motion, normal capillary refill Neurologic/Psychiatric: alert, oriented x 3 Skin: warm/dry Concord Coma Score Best Eye Response: (4) Open Spontaneously Best Verbal Response: (5) Oriented Best Motor Response: (6) Obeys Commands Concord Total: 15 Progress/Results/Core Measures Results/Orders Lab Results Laboratory Tests Test 10/03/23 11:15 Range/Units White Blood Count 10.6 4.3-11.0 10^3/uL Red Blood Count 4.16 3.80-5.11 10^6/uL Hemoglobin 13.8 11.5-16.0 g/dL Hematocrit 39 35-52 % Mean Corpuscular Volume 94 80-99 fL Mean Corpuscular Hemoglobin 33 25-34 pg Mean Corpuscular Hemoglobin Concent 36 32-36 g/dL Red Cell Distribution Width 12.0 10.0-14.5 % Platelet Count 241 130-400 10^3/uL Mean Platelet Volume 10.1 9.0-12.2 fL Immature Granulocyte % (Auto) 0 % Neutrophils (%) (Auto) 55 42-75 % Lymphocytes (%) (Auto) 36 12-44 % Monocytes (%) (Auto) 7 0-12 % Eosinophils (%) (Auto) 2 0-10 % Basophils (%) (Auto) 1 0-10 % Neutrophils # (Auto) 5.8 1.8-7.8 10^3/uL Lymphocytes # (Auto) 3.8 1.0-4.0 10^3/uL Monocytes # (Auto) 0.8 0.0-1.0 10^3/uL Eosinophils # (Auto) 0.2 0.0-0.3 10^3/uL Basophils # (Auto) 0.1 0.0-0.1 10^3/uL Immature Granulocyte # (Auto) 0.0 0.0-0.1 10^3/uL Prothrombin Time 12.6 12.2-14.7 SEC INR Comment 0.9 0.8-1.4 Activated Partial Thromboplast Time 30 24-35 SEC Sodium Level 135 135-145 MMOL/L Potassium Level 4.0 3.6-5.0 MMOL/L Chloride Level 100 98-107 MMOL/L Carbon Dioxide Level 25 21-32 MMOL/L Anion Gap 10 5-14 MMOL/L Blood Urea Nitrogen 11 7-18 MG/DL Creatinine 0.63 0.60-1.30 MG/DL Estimat Glomerular Filtration Rate 111 BUN/Creatinine Ratio 17 Glucose Level 102 70-105 MG/DL Calcium Level 8.6 8.5-10.1 MG/DL Corrected Calcium 8.8 8.5-10.1 MG/DL Magnesium Level 2.1 1.6-2.4 MG/DL Total Bilirubin 0.4 0.1-1.0 MG/DL Aspartate Amino Transf (AST/SGOT) 20 5-34 U/L Alanine Aminotransferase (ALT/SGPT) 24 0-55 U/L Alkaline Phosphatase 46 40-136 U/L Total Protein 7.2 6.4-8.2 GM/DL Albumin 3.8 3.2-4.5 GM/DL Lipase 46 8-78 U/L My Orders Orders - BLANCHE NATHAN MD Cbc And Automated Diff (10/03/23 11:08) Magnesium (10/03/23 11:08) Comprehensive Metabolic Panel (10/03/23 11:08) Protime With Inr (10/03/23 11:08) Partial Thromboplastin Time (10/03/23 11:08) Ed Iv/Invasive Line Start (10/03/23 11:08) Lipase (10/03/23 11:08) Ct Head/Cervical Spine Wo (10/03/23 11:08) Ct Chest/Abdomen/Pelvis Wo (10/03/23 11:08) Ct Thoracic/Lumbar Spine Wo (10/03/23 11:08) Ketorolac Injection (Ketorolac Injection (10/03/23 11:08) Ondansetron Injection (Ondansetron Inj (10/03/23 11:08) Orphenadrine Inj (Ed Only) (Orphenadrine (10/03/23 14:15) Fentanyl Injection (Fentanyl Injection (10/03/23 14:11) Oxycodone/Apap 5/325mg Tablet (Oxycodon (10/03/23 14:11) Medications Given in ED Current Medications Medications Dose Ordered Sig/Clark Route Start Time Stop Time Status Last Admin Dose Admin Orphenadrine Citrate 60 mg ONCE ONCE IVP 10/03/23 14:15 10/03/23 14:16 DC 10/03/23 14:19 60 MG Vital Signs/I&O 10/03/23 10/03/23 11:00 14:29 Temp 36.3 Pulse 81 79 Resp 16 16 B/P (MAP) 166/76 (106) 146/89 Pulse Ox 96 100 O2 Delivery Room Air Blood Pressure Mean: 106 Progress Progress Note #1: Progress Note Differential diagnosis includes head injury, skull fracture, intracranial hemorrhage, cervical spine fracture, clavicle fracture, thoracic spine fracture, lumbar spine fracture, scapular fracture, intra-abdominal hemorrhage, multiple contusions. With patient unsure if she lost consciousness will obtain CT scan of the head and cervical spine. CT scan of the chest abdomen pelvis to evaluate other areas of pain. Focusing on CT scan of the thoracic and lumbar spine to look for acute bony abnormality. Administer Toradol 15 mg IV to help with pain and inflammation as well as her headache. Establish peripheral IV access and send labs for complete blood count, comprehensive metabolic profile, coagulation factors. Progress Note #2: Progress Note Patient denies any improvement in her pain. She is resting comfortably in the room and using her phone without difficulty. Her labs did not show any acute si gnificant abnormality to account for her fall or to indicate any internal injury. Her CT scan of the head, cervical spine, chest, abdomen, pelvis, thoracic spine, lumbar spine were read out as no acute process. Updated patient on findings and results. Administer single oxycodone 5/325 to help with her generalized body pain. Norflex 60 mg IV for muscle spasms, fentanyl 50 mcg IV x1 for diffuse pain. Counseled to check back with her primary provider about when she could refill her chronic oxycodone pain medicine and if they felt she was safe enough to have a muscle relaxer at the same time as the chronic narcotic. Diagnostic Imaging Diagonstic Imaging: CT Plain Films/CT/US/NM/MRI: c-spine, head Comments [facility] [place] NAME: CAIT REYES [facility] REC#: [id number] PT STATUS: REG ER : 1975 PHYSICIAN: BLANCHE NATHAN MD ADMIT DATE: 10/03/23/ER FS Signed Date of Exam:10/03/23 CT HEAD/CERVICAL SPINE WO PROCEDURE: CT head and CT cervical spine without contrast. TECHNIQUE: Multiple contiguous axial images were obtained through the brain and cervical spine without the use of intravenous contrast. Sagittal and coronal reformations through the cervical spine were then performed. Auto Exposure Controls were utilized during the CT exam to meet ALARA standards for radiation dose reduction. INDICATION: Headache and neck pain after fall. Right hip pain and chest pain as well. COMPARISON: None. FINDINGS: No acute intracranial hemorrhage. The boothe-white matter differentiation is preserved. The ventricles and cortical sulci are normal. No intracranial mass or fluid collection. No midline shift or mass effect. The sella is normal. No Chiari malformation. The skull is intact. The paranasal sinuses and mastoids are clear. The globes and orbits are normal. There is straightening of the cervical lordosis. Mild multilevel disc height loss. The vertebral bodies are maintained. No acute fracture or dislocation of the cervical spine. Multilevel degenerative changes with moderate to severe spinal canal stenosis at C5-C6 and moderate spinal canal stenosis at C6-C7. IMPRESSION: No acute fracture or dislocation of the cervical spine. No acute intracranial hemorrhage. No large vascular territory dejesus-white loss. No intracranial mass, midline shift, or hydrocephalus. Moderate to severe spinal canal stenosis at C5-C6. Dictated by: Dictated on workstation # [id number] Dict: 10/03/23 1149 Trans: 10/03/23 1158 [facility] [place] [id number] Interpreted by: BRIAN DOWNS DO Electronically signed by: BRIAN DOWNS DO 10/03/23 1158 Reviewed: Reviewed by Nv Diagonstic Imaging: CT Plain Films/CT/US/NM/MRI: chest, abdomen, pelvis Comments [facility] [place] NAME: CAIT REYES [facility] REC#: [id number] PT STATUS: REG ER : 1975 PHYSICIAN: BLANCHE NATHAN MD ADMIT DATE: 10/03/23/ER FS Signed Date of Exam:10/03/23 CT CHEST/ABDOMEN/PELVIS WO PROCEDURE: CT chest, abdomen, and pelvis without contrast. TECHNIQUE: Multiple contiguous axial images were obtained through the chest, abdomen, and pelvis without the use of intravenous contrast. Auto Exposure Controls were utilized during the CT exam to meet ALARA standards for radiation dose reduction. INDICATION: Fall with right-sided shoulder, chest, and pelvic pain. COMPARISON: CT abdomen/pelvis 06/07/2022. FINDINGS: CHEST: No chest fracture is identified. No lung contusion, pneumothorax, or hemopneumothorax. No findings of aspiration. No mediastinal hematoma. No pleural or pericardial effusion. No mass or lymphadenopathy. No chest wall hematoma. The partially visualized structures of the shoulders appear nonacute. The sternomanubrium, diaphragms, and ribs are unremarkable. The spine is degenerative but shows no appreciable fracture. ABDOMEN/PELVIS: Fatty hepatomegaly is chronic. No free fluid or hemoperitoneum. No focal mesenteric or bowel wall hematoma. No free air. The bony pelvis shows no fracture. Sclerotic changes in the left inferior pubic ramus and ischium as well as the L3 lumbar vertebral body are stable from comparison of 16 months ago but remain of uncertain etiology. No new or acute bony pathology. No fracture. No intra or extraperitoneal hemorrhage. The spleen, adrenals, and pancreas are unremarkable. There is no hydroureteronephrosis and no radiodense urinary tract calculi. There is no bowel obstruction. No inflammatory process. No perforation. The urinary bladder had a normal morphology. IMPRESSION: No acute or post traumatic abnormality identified at CT chest, abdomen, and pelvis. Dictated by: Dictated on workstation # [id number] Dict: 10/03/23 1158 Trans: 10/03/23 1326 [id number] Interpreted by: AMARILYS VERA Electronically signed by: AMARILYS VERA 10/03/23 1326 Reviewed: Reviewed by Me Diagonstic Imaging: CT Plain Films/CT/US/NM/MRI: other (Thoracic and lumbar spine) Comments [facility], [place] NAME: CAIT REYES [facility] REC#: [id number] PT STATUS: REG ER : 1975 PHYSICIAN: BLANCHE NATHAN MD ADMIT DATE: 10/03/23/ER FS Signed Date of Exam:10/03/23 CT THORACIC/LUMBAR SPINE WO CT THORACIC/LUMBAR SPINE WO INDICATION: Back injury, trauma COMPARISON: CT chest abdomen pelvis from same day TECHNIQUE: CT imaging of the thoracic and lumbar spine was performed without contrast. Automatic exposure controls were utilized for dose optimization. FINDINGS: Thoracic:Thoracic spine is normal alignment. There is no acute fracture. No high-grade spinal canal stenosis. No features of paravertebral hematoma. Please see separate report for details of the visualized portions of the chest. Lumbar:Alignment of the lumbar spine is normal. There is no acute fracture. Sclerotic area in the superior plate of L3 was present on MRI of the lumbar spine from 06/19/2022 and therefore is likely benign. No additional sclerotic abnormalities within the thoracic spine. No high-grade spinal canal stenosis. SI joints are normal. No sacral fracture. Please see separate report for CT abdomen and pelvis for details of the visualized organs in these regions. IMPRESSION: 1. No acute fracture within the thoracic or lumbar spine. Dictated by: Dictated on workstation # [id number] Dict: 10/03/23 1233 Trans: 10/03/23 1238 [facility] [id number] Interpreted by: CARLI WHYTE MD Electronically signed by: CARLI WHYTE MD 10/03/23 1238 Reviewed: Reviewed by Me Departure Impression Primary Impression: Acute exacerbation of chronic low back pain Additional Impressions: Minor head injury without loss of consciousness Qualified Codes: S09.90XA - Unspecified injury of head, initial encounter Contusion of shoulder, right Qualified Codes: S40.011A - Contusion of right shoulder, initial encounter Contusion of flank and back Fall down steps Qualified Codes: W10.8XXA - Fall (on) (from) other stairs and steps, initial encounter Cervical muscle strain Qualified Codes: S16.1XXA - Strain of muscle, fascia and tendon at neck level, initial encounter Acute myofascial strain of lumbosacral region Qualified Codes: S39.012A - Strain of muscle, fascia and tendon of lower back, initial encounter Disposition: 01 HOME, SELF-CARE Condition: Stable Departure-Patient Inst. Decision time for Depature: 14:14 Referrals: MARIYA KEBEDE APRN (PCP) Primary Care Physician [facility]/KISHAN (Family) Primary Care Physician Patient Instructions: Preventing Falls ED, Neck Pain ED, Minor Head Injury, Adult ED, Shoulder Pain ED, Muscle Strain ED, Minor Contusion ED, Low Back Pain ED Add. Discharge Instructions: Your scans and imaging did not show any fractures or internal bleeding. You can still have contusion and bruising as well as muscle strain contributing to your pain. Check back with your regular provider about when you can get a refill of your chronic pain medication. Also you could discuss with them possible muscle relaxer however these medicines do interact and cause increased sedation so there is concern for your breathing and you would be at increased risk of falls from the sedation. In the meantime for Pain and muscle spasms you could try alternating ice and heat to help with the areas of pain. Stay well-hydrated and drink plenty of fluids. All discharge instructions reviewed with patient and/or family. Voiced understanding. BLANCHE NATHAN MD Oct 03, 2023 11:18
[2023-10-03 11:23] LABS: BASOPHILS # (AUTO) 0.1 10^3/uL (0.0-0.1); BASOPHILS % (AUTO) 1 % (0-10); EOSINOPHILS # (AUTO) 0.2 10^3/uL (0.0-0.3); EOSINOPHILS % (AUTO) 2 % (0-10); HEMATOCRIT 39 % (35-52); HEMOGLOBIN 13.8 g/dL (11.5-16.0); LYMPHOCYTES # (AUTO) 3.8 10^3/uL (1.0-4.0); LYMPHOCYTES % (AUTO) 36 % (12-44); MEAN CORPUSCULAR HEMOGLOBIN 33 pg (25-34); MEAN CORPUSCULAR HGB CONC 36 g/dL (32-36); MEAN CORPUSCULAR VOLUME 94 fL (80-99); MEAN PLATELET VOLUME 10.1 fL (9.0-12.2); MONOCYTES # (AUTO) 0.8 10^3/uL (0.0-1.0); MONOCYTES % (AUTO) 7 % (0-12); NEUTROPHILS # (AUTO) 5.8 10^3/uL (1.8-7.8); NEUTROPHILS % (AUTO) 55 % (42-75); PLATELET COUNT 241 10^3/uL (130-400); WHITE BLOOD COUNT 10.6 10^3/uL (4.3-11.0)
[2023-10-03 11:41] LABS: BILIRUBIN,TOTAL 0.4 MG/DL (0.1-1.0); CALCIUM 8.6 MG/DL (8.5-10.1); MAGNESIUM 2.1 MG/DL (1.6-2.4); TOTAL PROTEIN 7.2 GM/DL (6.4-8.2)
[2023-10-03 11:43] LABS: INR 0.9 (0.8-1.4); PROTHROMBIN TIME PATIENT 12.6 SEC (12.2-14.7)
[2023-10-03 11:50] LABS: ALBUMIN 3.8 GM/DL (3.2-4.5); CREATININE SERUM 0.63 MG/DL (0.60-1.30)
--- NOTE | 2023-10-03 11:59 | Diagnostic Imaging Report ---
PROCEDURE: CT head and CT cervical spine without contrast. TECHNIQUE: Multiple contiguous axial images were obtained through the brain and cervical spine without the use of intravenous contrast. Sagittal and coronal reformations through the cervical spine were then performed. Auto Exposure Controls were utilized during the CT exam to meet ALARA standards for radiation dose reduction. INDICATION: Headache and neck pain after fall. Right hip pain and chest pain as well. COMPARISON: None. FINDINGS: No acute intracranial hemorrhage. The boothe-white matter differentiation is preserved. The ventricles and cortical sulci are normal. No intracranial mass or fluid collection. No midline shift or mass effect. The sella is normal. No Chiari malformation. The skull is intact. The paranasal sinuses and mastoids are clear. The globes and orbits are normal. There is straightening of the cervical lordosis. Mild multilevel disc height loss. The vertebral bodies are maintained. No acute fracture or dislocation of the cervical spine. Multilevel degenerative changes with moderate to severe spinal canal stenosis at C5-C6 and moderate spinal canal stenosis at C6-C7. IMPRESSION: No acute fracture or dislocation of the cervical spine. No acute intracranial hemorrhage. No large vascular territory dejesus-white loss. No intracranial mass, midline shift, or hydrocephalus. Moderate to severe spinal canal stenosis at C5-C6. Dictated by: Dictated on workstation # [id number]
--- NOTE | 2023-10-03 12:12 | Diagnostic Imaging Report ---
PROCEDURE: CT chest, abdomen, and pelvis without contrast. TECHNIQUE: Multiple contiguous axial images were obtained through the chest, abdomen, and pelvis without the use of intravenous contrast. Auto Exposure Controls were utilized during the CT exam to meet ALARA standards for radiation dose reduction. INDICATION: Fall with right-sided shoulder, chest, and pelvic pain. COMPARISON: CT abdomen/pelvis 06/07/2022. FINDINGS: CHEST: No chest fracture is identified. No lung contusion, pneumothorax, or hemopneumothorax. No findings of aspiration. No mediastinal hematoma. No pleural or pericardial effusion. No mass or lymphadenopathy. No chest wall hematoma. The partially visualized structures of the shoulders appear nonacute. The sternomanubrium, diaphragms, and ribs are unremarkable. The spine is degenerative but shows no appreciable fracture. ABDOMEN/PELVIS: Fatty hepatomegaly is chronic. No free fluid or hemoperitoneum. No focal mesenteric or bowel wall hematoma. No free air. The bony pelvis shows no fracture. Sclerotic changes in the left inferior pubic ramus and ischium as well as the L3 lumbar vertebral body are stable from comparison of 16 months ago but remain of uncertain etiology. No new or acute bony pathology. No fracture. No intra or extraperitoneal hemorrhage. The spleen, adrenals, and pancreas are unremarkable. There is no hydroureteronephrosis and no radiodense urinary tract calculi. There is no bowel obstruction. No inflammatory process. No perforation. The urinary bladder had a normal morphology. IMPRESSION: No acute or post traumatic abnormality identified at CT chest, abdomen, and pelvis. Dictated by: Dictated on workstation # [id number]
--- NOTE | 2023-10-03 12:39 | Diagnostic Imaging Report ---
CT THORACIC/LUMBAR SPINE WO INDICATION: Back injury, trauma COMPARISON: CT chest abdomen pelvis from same day TECHNIQUE: CT imaging of the thoracic and lumbar spine was performed without contrast. Automatic exposure controls were utilized for dose optimization. FINDINGS: Thoracic:Thoracic spine is normal alignment. There is no acute fracture. No high-grade spinal canal stenosis. No features of paravertebral hematoma. Please see separate report for details of the visualized portions of the chest. Lumbar:Alignment of the lumbar spine is normal. There is no acute fracture. Sclerotic area in the superior plate of L3 was present on MRI of the lumbar spine from 06/19/2022 and therefore is likely benign. No additional sclerotic abnormalities within the thoracic spine. No high-grade spinal canal stenosis. SI joints are normal. No sacral fracture. Please see separate report for CT abdomen and pelvis for details of the visualized organs in these regions. IMPRESSION: 1. No acute fracture within the thoracic or lumbar spine. Dictated by: Dictated on workstation # [id number]
[2023-10-03] MEDS ORDERED: fentaNYL INJECTION 100 MCG/2 ML VIAL IVP STA (14:11)
[2023-10-03] MEDS ORDERED: oxyCODONE/ACETAMINOPHEN 5/325MG TABLET PO STA (14:11)
[2023-10-03] MEDS ORDERED: ORPHENADRINE 60 MG/2 ML AMP (ED ONLY) IVP ONE (14:15)
[2023-10-03 14:29] VITALS: BP 146/89
== END 2023-10-03 14:29 | disposition home or self-care (01) ==
LOC: EDUNIT# 10:54 → ER FS 10:56
DX: S09.90XA Unspecified injury of head, initial encounter (principal); S16.1XXA Strain of muscle, fascia and tendon at neck level, initial encounter; S39.012A Strain of muscle, fascia and tendon of lower back, initial encounter; S30.1XXA Contusion of abdominal wall, initial encounter; S40.011A Contusion of right shoulder, initial encounter; G89.29 Other chronic pain; F17.200 Nicotine dependence, unspecified, uncomplicated; W10.9XXA Fall (on) (from) unspecified stairs and steps, initial encounter
CPT/HCPCS: 36415; 70450; 71250; 72125; 72128; 72131; 74176; 80053; 83690; 83735; 85025; 85610; 85730; 96374; 96375